=== PATIENT | female | born 1950 | race Caucasian/White ===

== ENCOUNTER → 2017-02-12 | Outpatient (REF) | payer MEDICARE, OTHER ==
[2017-02-12 14:26] LABS: INR 0.94; PROTHROMBIN TIME 12.7 SECONDS (12.4-14.5)
[2017-02-12 14:27] LABS: PARTIAL THROMBOPLASTIN TIME 27.2 SECONDS (26.8-37.9)
== END ==
LOC: M LAB REF 13:31
DX: Z01.818 Encounter for other preprocedural examination (principal); Z79.01 Long term (current) use of anticoagulants
CPT/HCPCS: 85610

== ENCOUNTER 2017-02-23 13:15 | Day surgery (SDC) | payer MEDICARE, OTHER ==
[2017-02-23] MEDS: NS 1,000 ML IV (13:30)
[2017-02-23] MEDS ORDERED: LIDOCAINE 2% INJ 100 MG/5 ML SDV (FOR ANES.) As Ordered (14:02)
[2017-02-23] MEDS ORDERED: PROPOFOL 500 MG/50 ML VIAL As Ordered (14:02)
== END 2017-02-23 15:07 | disposition home or self-care (01) ==
LOC: M OPP 13:15
DX: R19.5 Other fecal abnormalities (principal); D12.2 Benign neoplasm of ascending colon; K64.8 Other hemorrhoids; K29.70 Gastritis, unspecified, without bleeding; I10 Essential (primary) hypertension; E78.5 Hyperlipidemia, unspecified; E03.9 Hypothyroidism, unspecified; K52.9 Noninfective gastroenteritis and colitis, unspecified; K58.9 Irritable bowel syndrome, unspecified; Z86.19 Personal history of other infectious and parasitic diseases; K21.9 Gastro-esophageal reflux disease without esophagitis; R12 Heartburn; Z86.718 Personal history of other venous thrombosis and embolism; Z86.14 Personal history of Methicillin resistant Staphylococcus aureus infection; M19.90 Unspecified osteoarthritis, unspecified site; M51.9 Unspecified thoracic, thoracolumbar and lumbosacral intervertebral disc disorder; M54.30 Sciatica, unspecified side; M79.7 Fibromyalgia; G43.909 Migraine, unspecified, not intractable, without status migrainosus; G50.0 Trigeminal neuralgia; Z78.0 Asymptomatic menopausal state; J45.909 Unspecified asthma, uncomplicated; G47.30 Sleep apnea, unspecified; R06.83 Snoring; Z88.8 Allergy status to other drugs, medicaments and biological substances; Z88.5 Allergy status to narcotic agent; Z88.0 Allergy status to penicillin; Z91.048 Other nonmedicinal substance allergy status; Z79.899 Other long term (current) drug therapy; Z80.3 Family history of malignant neoplasm of breast
CPT/HCPCS: 45385

== ENCOUNTER → 2017-03-24 | Outpatient (REF) | payer MEDICARE, OTHER ==
[2017-03-27 00:06] LABS: PHENOBARBITAL (PRIMIDONE) 2 ug/mL (15-40); PRIMIDONE, SERUM 5.9 ug/mL (5.0-12.0)
== END ==
LOC: M LAB REF 17:34
DX: J45.40 Moderate persistent asthma, uncomplicated (principal)
CPT/HCPCS: 80188

== ENCOUNTER → 2017-08-14 | Outpatient (REF) | payer MEDICARE, OTHER ==
[2017-08-14 19:36] LABS: RHEUMATOID FACTOR QUANT < 10.0 IU/ML (<15.0)
[2017-08-17 15:40] LABS: ANTINUCLEAR ANTIBODIES DIRECT Negative (Negative)
[2017-08-18 08:52] LABS: DRVV SCREEN 36.3 SEC
[2017-08-18 08:59] LABS: PTT LUPUS TYPE ANTICOAG SCREEN 0.8 (0-1.2)
== END ==
LOC: M LAB REF 16:59
DX: M25.50 Pain in unspecified joint (principal); M54.5 Low back pain
CPT/HCPCS: 85730

== ENCOUNTER → 2018-06-01 | Outpatient (REF) | payer MEDICARE, OTHER ==
[~2018-06-01] MED LIST: *BLDWK7; ACAI500C PO; ACET65TA OR; ADVA1AER2 INH; ADVAIR200 INHALATION; ADVAIR500 INHALATION; ALBU/IPRAT INHALATION; ALLE60TA69 PO; AMBI12.52 PO; AMBI5TAB PO; AMBIEN5 PO; ASMA1AER3 IN; ASTELIN NASAL; ATRO1SOL13; ATROVENT0.02%; AVEL1TAB2 OR; BACIDCA PO; BACL10TA2 OR; BIOT50004 PO; CADUET; CALC12504 PO; CALC600T7 PO; CALCTAB7 PO; CARA1TAB2 PO; CARB1TAB20; CATATTS2 TOPICALLY; CELEBRE100 PO; CIPR500T3 PO; CLARINEX PO; CLEO300C2 PO; CORTISSUSP OTIC; D 50CAP PO; DICY20TA11 PO; DIFLUC150 PO; DIOV160T5; DIOV80TA PO; DIOVANH160 PO; DUONSOL INH; DUONSOL INHALATION; ENTO3CAP5 PO; EPIP0.3I2 INJ; FLAG500T PO; FLONASESPR NASAL; FLOXINOTIC; FLUC10TA OR; GABA-845 PO; GINK120T PO; GLUC1500 PO; HCTZ25 PO; IMITREX100 PO; IPRA0.00 NEB; L THYROXINE PO; LEVA12INH INH; LEVAINH INH; LEVO112T2 PO; LEVO125T4 PO; LIDO1DIS2 TD; LIDODERM TOPICAL; LOPE2CAP PO; LOPR50TA OR; LYRI75CA PO; Lioresal PO; MAGN250T PO; MAGN500T2 PO; MAXA5TAB10 PO; MECL-68 PO; METO-743; METO1TAB7 PO; METO1TAB88 PO; MICR10CA PO; MOBIC15 PO; MOBIC7.5 PO; MUCINEX DM PO; MULTTAB4 PO; MYRB25TA PO; MYSO50TA5 PO; NAPR250T4 PO; NEUR300C; NEUR800T OR; NEXI1CAP3; NEXI1CAP3 OR; NEXIUM40 PO; NORVASC10 PO; NYST50SS PO; OCUFLOX TOPICAL; OMNASPR; ONDA-1 PO; OXYB5TAB80 PO; PANT40TA3 PO; PATANOL OPHTH; POTA99TA PO; PRAV20TA2 PO; PRED10TA2 OR; PRED10TA2 PO; PRED1TABL OU; PREDNISO20 PO; PREDOPD OS; PREG100CA OR; PREG100CA PO; PRILOSEC20 PO; PRILOSEC40 PO; REST0.05 OU; RESTASIS OS; RHIN3SUS; ROBISYP3 PO; SALI0.6528; SING10TA31 OR; SINGULAI10 PO; SKEL800T97 PO; SUCR1SS PO; SUCRPOW PO; SUDAFED30 PO; SUPECAP14 PO; SYNT137T; SYNTHRO PO; SYNTHRO125 PO; SYST0.3G OU; SYST1SOL OD; SYST1SOL OU; SYSTANE OS; SYSTANE OU; TESS100C OR; TOVI4TAB PO; TRAM50TA2 PO; TYLE325T5 PO; TYLE650T30 PO; ULTRTA PO; VENTAER INH; VERA27.5; VIOXX25 PO; VITA-121 PO; VITA1TAB23 PO; VITA400C2 PO; VITA500C14 PO; VOLT1GEL2 TD; VOLTARAN TOP; WELCHOL PO; XANA0.25 PO; XOLA150S SC; XOPENEX63 NEB; ZITHROM500 PO; ZITHROZPAK PO; ZOCOR40 PO; ZOLOFT100 PO; [UNRECOGNIZED DRUG - CODE] PO; [UNRECOGNIZED DRUG - CODE] PO; [UNRECOGNIZED DRUG - OTHER] PO; [UNRECOGNIZED DRUG - OTHER] TOP; cpap
[2018-06-01 19:52] LABS: INFLUENZA A AMPLIFICATION NEGATIVE (NEGATIVE); INFLUENZA B AMPLIFICATION NEGATIVE (NEGATIVE)
== END ==
LOC: M LAB REF 17:30
PROVIDERS: ATTEND Nurse Practitioner Adult Health
DX: R50.9 Fever, unspecified (principal); R05 Cough; J45.40 Moderate persistent asthma, uncomplicated

== ENCOUNTER → 2018-06-01 | Outpatient (REF) | payer MEDICARE, OTHER | LOC: M LAB REF 19:01 | PROVIDERS: ATTEND Internal Medicine Pulmonary Disease | DX: R05 Cough (principal); J45.40 Moderate persistent asthma, uncomplicated ==

== ENCOUNTER → 2018-08-02 | Outpatient (REF) | payer MEDICARE, OTHER | LOC: M LAB REF 13:24 | PROVIDERS: ATTEND Internal Medicine Pulmonary Disease | DX: R05 Cough (principal) ==

== ENCOUNTER 2018-09-16 06:12 | Day surgery (SDC) | payer MEDICARE, OTHER ==
[~2018-09-16] VITALS: Ht 157.5 cm; Wt 83.5 kg
[~2018-09-16 06:12] MED LIST changes: +AMLO10TA5 PO; +BACL10TA8 PO; -CALC12504 PO; +CALC500T61 PO; +CBD OIL PO; +MYRB50TA PO
[2018-09-16] MEDS ORDERED: mitoMYcin 0.2 MG/VIAL KIT FOR OPHTHALMIC USE (J7315 PER 0.2MG) As Ordered ONE (06:38)
[2018-09-16] MEDS ORDERED: POVIDONE-IODINE 5% OPHTH PREP SOL 30ML As Ordered ONE (06:38)
[2018-09-16] MEDS ORDERED: PROPARACAINE 0.5% OPHTH SOL 15ML OS ONE (07:00)
[2018-09-16] MEDS ORDERED: MIDAZOLAM INJ 2 MG/2 ML VIAL (J2250) As Ordered ONE (07:35)
[2018-09-16] MEDS ORDERED: fentaNYL 100 MCG/2 ML INJECTION (J3010) As Ordered ONE (07:35)
[2018-09-16] MEDS ORDERED: ONDANSETRON 4MG/2ML VIAL (J2405) As Ordered ONE (07:35)
[2018-09-16 08:10] VITALS: BP 174/78
--- NOTE | 2018-09-21 08:05 | RO ---
DATE OF PROCEDURE: 09/16/2018 PREPROCEDURE DIAGNOSIS: 1. Recurrent corneal erosion, status post corneal trauma of the left eye. POSTPROCEDURE DIAGNOSIS: 1. Recurrent corneal erosion, status post corneal trauma of the left eye. PROCEDURE: 1. Superficial keratectomy with use of jamilah jens and peripheral corneal scoring of the left eye SURGEON: Yefri Dietz MD SURGICAL SERVICES ASST: ANESTHESIA: MAC. The patient was identified. The surgical eye was marked and the patient was transferred to the operating room. The eye was prepped and draped in a sterile fashion. Tegaderm was used to isolate the upper and lower eyelids and a speculum was placed. Careful inspection of the corneal surface was performed prior to the procedure. At that time, a [place] blade was used to gently remove the corneal epithelium 360 degrees, leaving approximately 1 to 2 mm at the corneal limbus of untouched epithelium. Using a 5 mm jamilah jens, careful application of the jamilah jens was used to roughen peripheral and paracentral corneal surface. Using a bent 30-gauge needle, gentle hash dixon were placed 360 degrees in the exposed corneal surface 360 degrees. A bandage contact lens was placed. The patient tolerated the procedure well and was discharged to the postanesthesia care unit (PACU) in a stable condition. JOE
== END 2018-09-16 08:28 | disposition home or self-care (01) ==
LOC: M SDC 06:12
PROVIDERS: ATTEND Ophthalmology
DX: H18.832 Recurrent erosion of cornea, left eye (principal); I10 Essential (primary) hypertension; E78.5 Hyperlipidemia, unspecified; E03.9 Hypothyroidism, unspecified; M79.7 Fibromyalgia; J45.909 Unspecified asthma, uncomplicated; G47.30 Sleep apnea, unspecified; Z88.0 Allergy status to penicillin; Z88.8 Allergy status to other drugs, medicaments and biological substances; Z79.899 Other long term (current) drug therapy
CPT/HCPCS: 65435; J2250; J2405; J3010

== ENCOUNTER → 2019-01-20 | Outpatient (CLI) | payer MEDICARE, OTHER ==
[~2019-01-20] MED LIST changes: +PROHANCE 279.3MG/ML 5ML VIAL (A9576) As Ordered ONE
--- NOTE | 2019-01-20 13:42 | REP ---
MRI LEFT UPPER ARM WITH AND WITHOUT CONTRAST: HISTORY: Palpable lump. The area is marked on the skin. Multiple sequences obtained in the axial, coronal, and sagittal planes prior to and following the intravenous administration of 8 mL ProHance. At the site of the reported palpable lump there is subcutaneous lipomatous tissue without a discrete mass. No cystic lesions are seen. No fluid collection is seen. No abnormal enhancement is seen. The underlying humerus demonstrates normal bone marrow signal with no abnormal enhancement. IMPRESSION: Negative MRI left upper arm. No evidence of underlying mass. Electronically Signed by William Aguilar MD 01/24/2019 10:16 A
== END ==
LOC: M RAD 10:51
PROVIDERS: ATTEND Orthopaedic Surgery
DX: R22.32 Localized swelling, mass and lump, left upper limb (principal)
CPT/HCPCS: 73220; A9576

== ENCOUNTER → 2019-09-06 | Outpatient (CLI) | payer MEDICARE, OTHER ==
[~2019-09-06] MED LIST changes: +ADV500INH INH; -AMLO10TA5 PO; +AMLO1TAB25 PO; +CALC-212 PO; -CALC600T7 PO; +FAMO20TA PO; +LOSA25TA14 PO; +LYRI150C PO; -MECL-68 PO; +MECL1TAB31 PO; +MULTCAP PO; +PANT40TA29 PO; -PANT40TA3 PO; -PROHANCE 279.3MG/ML 5ML VIAL (A9576) As Ordered ONE; +SING10TA32 PO; -VITA1TAB23 PO; +VITA250T20 PO
--- NOTE | 2019-10-28 14:08 | REP ---
MAXILLOFACIAL CT STUDY. HISTORY: Chronic maxillary sinusitis. Delay in reporting results from hospital computer system malfunction from malware/ ransomware. COMPARISON: None. FINDINGS: Maxillary, frontal, sphenoidal and ethmoidal air cells are clear. There is no evidence of paranasal sinus disease. The mastoid aeration is normal and symmetric as well. No intraorbital or intracranial abnormality is seen. The orbital margins are intact. The bony nasal septum is in the midline. The nasal turbinate soft tissues are symmetric. The osteomeatal complexes are patent, as are the nasal ethmoid recesses. IMPRESSION: Negative paranasal sinus CT study. MTDD
== END ==
LOC: M PLAIMG 05:45
PROVIDERS: ATTEND Internal Medicine Nephrology
DX: N18.3 Chronic kidney disease, stage 3 (moderate) (principal); I12.9 Hypertensive chronic kidney disease with stage 1 through stage 4 chronic kidney disease, or unspecified chronic kidney disease; N32.81 Overactive bladder

== ENCOUNTER → 2019-09-06 | Outpatient (CLI) | payer MEDICARE, OTHER ==
--- NOTE | 2019-10-28 14:06 | REP ---
MAXILLOFACIAL CT STUDY. HISTORY: Chronic maxillary sinusitis. This report was delayed due to a malware attack on this facility. COMPARISON: None. FINDINGS: Maxillary, frontal, sphenoidal and ethmoidal air cells are clear. There is no evidence of paranasal sinus disease. The mastoid aeration is normal and symmetric as well. No intraorbital or intracranial abnormality is seen. The orbital margins are intact. The bony nasal septum is in the midline. The nasal turbinate soft tissues are symmetric. The osteomeatal complexes are patent, as are the nasal ethmoid recesses. IMPRESSION: Negative paranasal sinus CT study. MTDD
== END ==
LOC: M RAD 08:53
PROVIDERS: ATTEND Physician Assistant Medical
DX: J32.0 Chronic maxillary sinusitis (principal)

== ENCOUNTER → 2019-11-17 | Outpatient (CLI) | payer MEDICARE, OTHER | LOC: M LABSMTC 11:52 | PROVIDERS: ATTEND Anesthesiology | DX: Z01.812 Encounter for preprocedural laboratory examination (principal); Z20.828 Contact with and (suspected) exposure to other viral communicable diseases | CPT/HCPCS: C9803; U0003 ==

== ENCOUNTER 2019-11-22 11:13 | Day surgery (SDC) | payer MEDICARE, OTHER ==
[~2019-11-22] VITALS: Ht 158.8 cm; Wt 76.2 kg
[~2019-11-22 11:13] MED LIST changes: +LIDOCAINE 2% 100MG/5ML SDV (FOR ANES.) As Ordered ONE; +NS 1,000 ML IV ONE; +fentaNYL 100 MCG/2 ML INJECTION (J3010) As Ordered ONE; +propofoL 200 MG/20 ML VIAL As Ordered ONE
--- NOTE | 2019-11-22 13:47 | ROOR ---
Patient Name: Evita Colon Procedure Date: 11/22/2019 1:17 PM Date of : 1950 Age: 69 Room: [facility] Gender: Female Note Status: Finalized Procedure: Upper GI endoscopy Indications: Heartburn, Failure to respond to medical treatment Providers: Moody ORO MD Referring MD: Angelita Bowman NP Requesting Provider: Medicines: Monitored Anesthesia Care Complications: No immediate complications. Procedure: Pre-Anesthesia Assessment: - The heart rate, respiratory rate, oxygen saturations, blood pressure, adequacy of pulmonary ventilation, and response to care were monitored throughout the procedure. The Endoscope was introduced through the mouth, and advanced to the second part of duodenum. The upper GI endoscopy was accomplished without difficulty. The patient tolerated the procedure well. Findings: The examined esophagus was normal. The entire examined stomach was normal. A medium diverticulum was found in the first portion of the duodenum. The examined duodenum was normal. Impression: - Normal esophagus. - Normal stomach. - Normal examined duodenum. - Incidental: 1 cm duodenal diverticulum in the 1st/2nd portion. - No specimens collected. Recommendation: - Unable to tolerate PPI therapy. failure on H2B,Sucralfate, tums, maalox and other OTC meds. I would recommend consideration for antireflux surgery. - Referral will be made for consultation re: antireflux surgery. Moody Oro MD Moody ORO MD 11/22/2019 1:46:47 PM Electronically signed by Moody ORO MD Number of Addenda: 0 Note Initiated On: 11/22/2019 1:17 PM Estimated Blood Loss: Estimated blood loss: none.
[2019-11-22] MEDS ORDERED: propofoL 200 MG/20 ML VIAL As Ordered ONE (13:59)
--- NOTE | 2019-11-22 14:03 | ROOR ---
Patient Name: Evita Colon Procedure Date: 11/22/2019 1:19 PM Date of : 1950 Age: 69 Room: [facility] Gender: Female Note Status: Finalized Procedure: Colonoscopy Indications: High risk colon cancer surveillance: Personal history of colonic polyps Providers: Moody ORO MD Referring MD: Angelita Bowman NP Requesting Provider: Medicines: Monitored Anesthesia Care Complications: No immediate complications. Procedure: Pre-Anesthesia Assessment: - The heart rate, respiratory rate, oxygen saturations, blood pressure, adequacy of pulmonary ventilation, and response to care were monitored throughout the procedure. The Colonoscope was introduced through the anus and advanced to the terminal ileum, with identification of the appendiceal orifice and IC valve. The colonoscopy was performed without difficulty. The patient tolerated the procedure well. The quality of the bowel preparation was good. Findings: The perianal and digital rectal examinations were normal. Mild sigmoid diverticulosis and small internal hemorrhoids. The entire examined colon othertwise appeared normal on direct and retroflexion views. Impression: - Mild sigmoid diverticulosis and small internal hemorrhoids. - The colon is otherwise normal on direct and retroflexion views. - No specimens collected. Recommendation: - Repeat colonoscopy in 5 years for surveillance. Moody Oro MD Moody ORO MD 11/22/2019 2:03:32 PM Electronically signed by Moody ORO MD Number of Addenda: 0 Note Initiated On: 11/22/2019 1:19 PM Estimated Blood Loss: Estimated blood loss: none.
[2019-11-22 14:30] VITALS: BP 162/84
== END 2019-11-22 14:36 | disposition home or self-care (01) ==
LOC: M OPP 11:13
PROVIDERS: ATTEND Internal Medicine Gastroenterology
DX: Z12.11 Encounter for screening for malignant neoplasm of colon (principal); Z86.010 Personal history of colon polyps; R12 Heartburn; K21.9 Gastro-esophageal reflux disease without esophagitis; K59.00 Constipation, unspecified; K57.30 Diverticulosis of large intestine without perforation or abscess without bleeding; K64.8 Other hemorrhoids; K57.10 Diverticulosis of small intestine without perforation or abscess without bleeding; I10 Essential (primary) hypertension; E03.9 Hypothyroidism, unspecified; K58.9 Irritable bowel syndrome, unspecified; M79.7 Fibromyalgia; G43.909 Migraine, unspecified, not intractable, without status migrainosus; J45.909 Unspecified asthma, uncomplicated; Z86.718 Personal history of other venous thrombosis and embolism; Z86.14 Personal history of Methicillin resistant Staphylococcus aureus infection; Z88.0 Allergy status to penicillin; Z88.5 Allergy status to narcotic agent; Z88.6 Allergy status to analgesic agent; Z88.8 Allergy status to other drugs, medicaments and biological substances; Z91.09 Other allergy status, other than to drugs and biological substances; Z79.891 Long term (current) use of opiate analgesic; Z79.899 Other long term (current) drug therapy; Z83.6 Family history of other diseases of the respiratory system; Z83.3 Family history of diabetes mellitus; Z80.3 Family history of malignant neoplasm of breast
CPT/HCPCS: 43235; G0105; J3010

== ENCOUNTER → 2020-02-09 | Outpatient (REF) | payer MEDICARE, OTHER ==
[~2020-02-09] MED LIST changes: -LIDOCAINE 2% 100MG/5ML SDV (FOR ANES.) As Ordered ONE; -NS 1,000 ML IV ONE; -fentaNYL 100 MCG/2 ML INJECTION (J3010) As Ordered ONE; -propofoL 200 MG/20 ML VIAL As Ordered ONE
[2020-02-09 16:35] LABS: APPEARANCE, URINE CLEAR (CLEAR); BACTERIA, URINE AUTO NEGATIVE (NEGATIVE); BILIRUBIN, URINE AUTO NEGATIVE (NEGATIVE); BLOOD, URINE BLOOD NEGATIVE (NEGATIVE); COLOR, URINE YELLOW (YELLOW); GLUCOSE, URINE (UA) AUTO NEGATIVE (NEGATIVE); KETONE, URINE AUTO NEGATIVE (NEGATIVE); LEUKOCYTE ESTERASE, URINE AUTO 1+ (NEGATIVE); NITRITE, URINE AUTO NEGATIVE (NEGATIVE); PROTEIN, URINE AUTO NEGATIVE (NEGATIVE); RBC, URINE AUTO 0 /HPF (0-3); SPECIFIC GRAVITY URINE AUTO 1.006 (1.002-1.035); SQUAMOUS EPITHELIAL CELL UR AU 0 /HPF (0-6); UROBILINOGEN, URINE AUTO 0.2 mg/dL (0.0-2.0); WBC, URINE AUTO 3 /HPF (0-3)
== END ==
LOC: M LAB REF 16:20
PROVIDERS: ATTEND Physician Assistant
DX: N39.0 Urinary tract infection, site not specified (principal)

== ENCOUNTER → 2020-02-16 | Outpatient (REF) | payer MEDICARE, OTHER | LOC: M LAB REF 12:39 | PROVIDERS: ATTEND Nurse Practitioner Adult Health | DX: M54.5 Low back pain (principal); R31.29 Other microscopic hematuria ==

== ENCOUNTER → 2020-02-29 | Outpatient (CLI) | payer MEDICARE, OTHER ==
--- NOTE | 2020-02-29 14:36 | REP ---
INDICATION: FLANK PAIN. COMPARISON: Comparison sonography September 06, 2019.. TECHNIQUE: Transabdominal urinary tract sonography. FINDINGS: Scanning at the level of the urinary bladder shows no abnormality. Renal cortical echogenicity pattern is normal bilaterally and contours are smooth. There is no evidence of hydronephrosis, cyst, mass, or calculus in either kidney. The right kidney measures 11.1 x 5.9 x 3.5 cm. Left renal dimensions are 11.4 x 5.0 x 5.8 cm. IMPRESSION: Normal urinary tract sonography. <Electronically signed by Antonio Carolina > 02/29/20 [id number]
== END ==
LOC: M RAD 12:22
PROVIDERS: ATTEND Nurse Practitioner Adult Health
DX: R10.30 Lower abdominal pain, unspecified (principal)

== ENCOUNTER → 2020-08-14 | Outpatient (CLI) | payer MEDICARE, OTHER ==
[~2020-08-14] MED LIST changes: +GABA-283 PO; -GABA-845 PO; +NAPR-849 PO; -NAPR250T4 PO
[2020-08-14 12:45] LABS: PLATELET COUNT, AUTOMATED 258 10^3/uL (150-450)
[2020-08-14 12:51] LABS: COLLAGEN EPINEPHRINE 90 SECONDS (74-162)
[2020-08-14 12:53] LABS: INR 0.87; PARTIAL THROMBOPLASTIN TIME 22.1 SECONDS (24.2-38.5)
== END ==
LOC: M LAB 11:27
PROVIDERS: ATTEND Physical Medicine & Rehabilitation
DX: Z01.818 Encounter for other preprocedural examination (principal); Z79.01 Long term (current) use of anticoagulants

== ENCOUNTER → 2020-10-26 | Outpatient (REF) | payer MEDICARE, OTHER ==
[~2020-10-26] MED LIST changes: +AJOV225I SC; +BACL10TA2 PO; +ELIQ5TAB4 PO; +FURO20TA2 PO; +HYDR25TA PO; +IPRA0.00 INH; +LOSA100T45 PO; +LOSA25TA13 PO; -LOSA25TA14 PO; +MAXA10TA15 PO; +PROAAER10 INH; +QVAR80AE8 INH; +VERA360C PO; +VESI10TA2 PO; +VITMTA PO
== END ==
LOC: M LAB REF 16:01
PROVIDERS: ATTEND Nurse Practitioner Adult Health
DX: R10.9 Unspecified abdominal pain (principal)

== ENCOUNTER → 2020-10-31 | Outpatient (CLI) | payer MEDICARE, OTHER ==
[~2020-10-31] MED LIST changes: -AJOV225I SC; -BACL10TA2 PO; -ELIQ5TAB4 PO; -FURO20TA2 PO; +GASTROGRAFIN SOLUTION 30ML (Q9963) ONE; -HYDR25TA PO; -IPRA0.00 INH; +ISOVUE-370 76% 100ML VIAL ONE; -LOSA100T45 PO; -LOSA25TA13 PO; +LOSA25TA14 PO; -MAXA10TA15 PO; -PROAAER10 INH; -QVAR80AE8 INH; -VERA360C PO; -VESI10TA2 PO; -VITMTA PO
--- NOTE | 2020-10-31 15:08 | REP ---
INDICATION: RT SIDE ABD PAIN. COMPARISON: Abdominal CT 09/11/2014. chest CT 08/05/2018. TECHNIQUE: CT abdomen and pelvis performed without IV contrast. CT abdomen and pelvis performed with IV contrast as well, following intravenous administration of 100 cc of Isovue 370. Oral contrast was also administered. Sagittal, coronal and 3D MIP reconstruction images are performed. FINDINGS: Lung bases: Bibasilar fibrotic change. Liver: Normal Gallbladder: Prior cholecystectomy. Spleen: Normal. Adrenals: Normal. Pancreas: Normal. Kidneys: There is a subcentimeter cyst of the mid left kidney. No renal stone or hydronephrosis is visualized. Small and large bowel: Unremarkable. Free fluid: None. Adenopathy: None. Appendix: Not inflamed. Osseous structures: There are degenerative changes of the spine without compression deformity. Pelvis: No mass. IMPRESSION: No significant acute pathology identified. <Electronically signed by William Aguilar > 10/31/20 [id number]
== END ==
LOC: M PLAIMG 12:42
PROVIDERS: ATTEND Nurse Practitioner Adult Health
DX: R10.9 Unspecified abdominal pain (principal)
CPT/HCPCS: 74178; Q9963; Q9967

== ENCOUNTER → 2020-11-14 | Outpatient (REF) | payer MEDICARE, OTHER ==
[~2020-11-14] MED LIST changes: -GASTROGRAFIN SOLUTION 30ML (Q9963) ONE; -ISOVUE-370 76% 100ML VIAL ONE
== END ==
LOC: M LAB REF 13:27
PROVIDERS: ATTEND Nurse Practitioner Family
DX: E83.42 Hypomagnesemia (principal)

== ENCOUNTER → 2020-12-04 | Outpatient (CLI) | payer MEDICARE, OTHER ==
--- NOTE | 2020-12-04 11:58 | REP ---
INDICATION: RENOVASCULAR HTN, CKD 3A; HTN, CKD. COMPARISON: 02/29/2020. TECHNIQUE: Real-time sonographic evaluation of the kidneys is performed. Duplex Doppler evaluation of renal arteries performed. FINDINGS: Renal cortical echogenicity pattern is normal bilaterally and contours are smooth. There is no evidence of hydronephrosis bilaterally. There is a 6 mm cyst in the right lower pole. There is a 7 mm cyst in the mid left kidney.. The right kidney measures 11.4 x 5.8 x 3.8 cm. Left renal dimensions are 11.1 x 5.4 x 5.6 cm. The urinary bladder is unremarkable. Duplex Doppler evaluation of renal arteries is performed. The peak systolic velocity of the abdominal aorta at the level of the renal arteries is 85 centimeter/second. The peak systolic velocity of the main right renal artery is 193 centimeters/second, renal to aortic ratio 2.3. Resistive indices right kidney range between 0.61 and 0.66. Acceleration times range between 0.028 and 0.069. The peak systolic velocity of the main left renal artery is 145 centimeters/second. Renal to aortic ratio 1.70. Resistive indices left kidney 0.59 and 0.64. Acceleration times 0.039 to 0.056. IMPRESSION: No compelling duplex Doppler sonographic evidence of hemodynamically significant stenosis of the renal arteries bilaterally. <Electronically signed by William Aguilar > 12/04/20 [id number]
== END ==
LOC: M RAD 08:43
PROVIDERS: ATTEND Nurse Practitioner Family
DX: I15.0 Renovascular hypertension (principal); N18.31 Chronic kidney disease, stage 3a

== ENCOUNTER → 2020-12-11 | Outpatient (CLI) | payer MEDICARE, OTHER ==
--- NOTE | 2020-12-11 15:45 | REP ---
INDICATION: SEVERE PERSISTENT ASTHMA, UNCOMPLICATED. COMPARISON: 08/02/2018 the latest prior TECHNIQUE: PA and lateral FINDINGS: The cardiomediastinal silhouette is stable. There are basilar fibrotic changes status quo. No acute patchy parenchymal opacities or pleural effusions have developed. There is no change in the osseous structures. IMPRESSION: Stable appearing chronic changes. <Electronically signed by Jayme Garcia > 12/11/20 [id number]
== END ==
LOC: M PLAIMG 11:38
PROVIDERS: ATTEND Internal Medicine Pulmonary Disease
DX: J45.50 Severe persistent asthma, uncomplicated (principal)

== ENCOUNTER → 2020-12-12 | Outpatient (REF) | payer MEDICARE, OTHER | LOC: M LAB REF 17:36 | PROVIDERS: ATTEND Nurse Practitioner Family | DX: I12.9 Hypertensive chronic kidney disease with stage 1 through stage 4 chronic kidney disease, or unspecified chronic kidney disease (principal); N18.31 Chronic kidney disease, stage 3a ==

== ENCOUNTER → 2020-12-18 | Outpatient (REF) | payer MEDICARE, OTHER | LOC: M LAB REF 13:10 | PROVIDERS: ATTEND Internal Medicine Pulmonary Disease | DX: J45.50 Severe persistent asthma, uncomplicated (principal) ==

== ENCOUNTER → 2020-12-18 | Outpatient (CLI) | payer MEDICARE, OTHER ==
--- NOTE | 2020-12-18 16:53 | REPVR ---
PROCEDURE INFORMATION: Exam: MR Thoracic Spine Without Contrast Exam date and time: 12/18/2020 3:41 PM Age: 70 years old Clinical indication: Pain in thoracic spine; Additional info: Pain in t spine TECHNIQUE: Imaging protocol: Multiplanar magnetic resonance images of the thoracic spine without contrast. COMPARISON: CT ABD PELVIS W/O FOL BY WIT 10/31/2020 2:19 PM FINDINGS: Modic type 1 edematous degenerative endplate change at T10-T11 and L1-L2. No evidence of acute thoracic spine fracture. Thoracic vertebral body heights are maintained. Multilevel mild degenerative disc height loss and osteophyte formation. Multilevel minimal posterior disc protrusions without significant canal narrowing. No cord compression. No abnormal cord signal. Thoracic kyphosis is preserved. Paravertebral soft tissues are unremarkable. Partially visualized right-sided mild hydronephrosis IMPRESSION: 1. No acute findings in the thoracic spine. 2. Partially visualized right-sided mild hydronephrosis. Correlate with dedicated renal imaging. 3. Chronic findings, as above. Electronically signed by: Roman Ortiz On 12/18/2020 16:53:01 PM
== END ==
LOC: M PLAIMG 14:17
PROVIDERS: ATTEND Physical Medicine & Rehabilitation
DX: M54.6 Pain in thoracic spine (principal); I12.9 Hypertensive chronic kidney disease with stage 1 through stage 4 chronic kidney disease, or unspecified chronic kidney disease; J45.50 Severe persistent asthma, uncomplicated

== ENCOUNTER → 2020-12-18 | Outpatient (REF) | payer MEDICARE, OTHER | LOC: M LAB REF 13:30 | PROVIDERS: ATTEND Nurse Practitioner Family | DX: I12.9 Hypertensive chronic kidney disease with stage 1 through stage 4 chronic kidney disease, or unspecified chronic kidney disease (principal) ==

== ENCOUNTER → 2021-01-07 | Outpatient (CLI) | payer MEDICARE, OTHER ==
[~2021-01-07] MED LIST changes: +AJOV225I SC; +BACL10TA2 PO; +ELIQ5TAB4 PO; +FURO20TA2 PO; +HYDR25TA PO; +IPRA0.00 INH; +LOSA100T45 PO; +LOSA25TA13 PO; -LOSA25TA14 PO; +MAXA10TA15 PO; +PROAAER10 INH; +QVAR80AE8 INH; +VERA360C PO; +VESI10TA2 PO; +VITMTA PO
== END ==
LOC: M CARPUL 10:23
PROVIDERS: ATTEND Internal Medicine Pulmonary Disease
DX: R06.00 Dyspnea, unspecified (principal)

== ENCOUNTER → 2021-01-15 | Outpatient (REF) | payer MEDICARE, OTHER ==
[~2021-01-15] MED LIST changes: -AJOV225I SC; -BACL10TA2 PO; -ELIQ5TAB4 PO; -FURO20TA2 PO; -HYDR25TA PO; -IPRA0.00 INH; -LOSA100T45 PO; -LOSA25TA13 PO; +LOSA25TA14 PO; -MAXA10TA15 PO; -PROAAER10 INH; -QVAR80AE8 INH; -VERA360C PO; -VESI10TA2 PO; -VITMTA PO
[2021-01-15 13:42] LABS: MAGNESIUM LEVEL 2.1 MG/DL (1.8-2.4)
== END ==
LOC: M LAB REF 12:50
PROVIDERS: ATTEND Nurse Practitioner Family
DX: E83.42 Hypomagnesemia (principal); I50.32 Chronic diastolic (congestive) heart failure

== ENCOUNTER 2021-01-31 13:52 | Inpatient (IN) | payer MEDICARE, OTHER ==
[~2021-01-31] VITALS: Ht 165.1 cm; Wt 81.4 kg
--- NOTE | 2021-01-31 14:53 | REP ---
INDICATION: DYSPNEA/COUGH COMPARISON: None. TECHNIQUE: Portable AP view of the chest FINDINGS: The mediastinum and cardiac silhouette are stable and within normal limits for portable technique. The lung rice are relatively clear although very subtle left basilar atelectasis cannot be excluded. Skeletal structures are intact. IMPRESSION: Possible left basilar atelectasis. <Electronically signed by Romario George > 01/31/21 [id number]
[2021-01-31 15:03] LABS: BASO % 0.6 % (0.0-1.0); EOS % 0.2 % (0.0-3.0); HEMATOCRIT 39.8 % (36.0-47.0); LYMPH # 1.5 10^3/uL (1.5-5.0); LYMPH % 30.3 % (24.0-44.0); MEAN CORPUSCULAR HGB CONC 32.7 g/dl (32.0-36.5); MEAN CORPUSCULAR VOLUME 94.8 fl (80.0-96.0); MONO # 0.8 10^3/uL (0.0-0.8); MONO % 15.8 % (2.0-8.0); NEUTROPHILS # 2.6 10^3/uL (1.5-8.5); NEUTROPHILS % 52.7 % (36.0-66.0); PLATELET COUNT, AUTOMATED 166 10^3/uL (150-450)
[2021-01-31 15:14] LABS: FIBRINOGEN 311 MG/DL (268-480); INR 1.06; PARTIAL THROMBOPLASTIN TIME 27.9 SECONDS (25.9-37.0); PROTHROMBIN TIME 14.2 SECONDS (12.7-14.5)
[2021-01-31 15:43] LABS: ALBUMIN 3.6 GM/DL (3.2-5.2); BILIRUBIN,DIRECT 0.1 MG/DL (0.0-0.2); BILIRUBIN,TOTAL 0.4 MG/DL (0.2-1.0); CALCIUM LEVEL 8.9 MG/DL (8.8-10.2); CREATININE FOR GFR 0.99 MG/DL (0.55-1.30); GLOMERULAR FILTRATION RATE 59.2 (>45); MAGNESIUM LEVEL 2.6 MG/DL (1.8-2.4); POTASSIUM SERUM 3.4 MEQ/L (3.5-5.1); THYROID STIMULATING HORMONE 0.815 uIU/ML (0.358-3.740); THYROXINE (T4) 7.2 UG/DL (4.5-12.0); TOTAL PROTEIN 6.6 GM/DL (6.4-8.2)
[2021-01-31 15:55] LABS: D-DIMER QUANT > 4000 ng/ml (<500)
[2021-01-31] MEDS ORDERED: ISOVUE-370 76% 100ML VIAL As Ordered ONE (16:30)
--- NOTE | 2021-01-31 18:16 | REPVR ---
PROCEDURE INFORMATION: Exam: CTA Chest With Contrast Exam date and time: 01/31/2021 4:24 PM Age: 70 years old Clinical indication: Shortness of breath; Additional info: SOB; R/O pe TECHNIQUE: Imaging protocol: Computed tomographic angiography of the chest with contrast. 3D rendering (Not supervised by radiologist): MIP and/or 3D reconstructed images were created by the technologist. Radiation optimization: All CT scans at this facility use at least one of these dose optimization techniques: automated exposure control; mA and/or kV adjustment per patient size (includes targeted exams where dose is matched to clinical indication); or iterative reconstruction. Contrast material: ISOVUE 370; Contrast volume: 75 ml; Contrast route: INTRAVENOUS (IV); COMPARISON: CR PORTABLE CHEST X-RAY 01/31/2021 2:36 PM FINDINGS: Pulmonary arteries: Normal. No pulmonary emboli. Aorta: There is mild atherosclerosis in the thoracic aorta. There is no aortic dissection or aneurysm. Lungs: Bibasilar atelectasis. Lungs otherwise clear. Small filling defect demonstrated in a right lower lobe segmental artery consistent with a nonocclusive thrombus (401, 83). Small occlusive thrombus in a segmental artery to the posterior segment of the right upper lobe (401, 50). Pleural spaces: Unremarkable. No pneumothorax. No pleural effusion. Heart: Normal RV LV ratio indicating no evidence of right heart strain. Lymph nodes: Unremarkable. No enlarged lymph nodes. Gallbladder and bile ducts: Cholecystectomy. Bones/joints: The spine demonstrates mild degenerative changes. Soft tissues: Unremarkable. IMPRESSION: 1. There is no aortic dissection or aneurysm. 2. Small pulmonary emboli as described above. 3. Normal RV LV ratio indicating no evidence of right heart strain. 4. No acute pulmonary parenchymal abnormalities. A critical call has been initiated in order to speak with the ordering physician/practitioner. This report will be amended once consultation has occurred. Electronically signed by: Jalen Davis On 01/31/2021 18:16:21 PM
[2021-01-31 19:56] LABS: RSV AMPLIFICATION NEGATIVE (NEGATIVE)
[2021-01-31] MEDS ORDERED: ONDANSETRON 4MG/2ML VIAL IV PRN (20:05)
[2021-01-31 20:37] LABS: BASO % 0.6 % (0.0-1.0); EOS % 0.6 % (0.0-3.0); HEMATOCRIT 40.3 % (36.0-47.0); HEMOGLOBIN 13.1 g/dl (12.0-15.5); LYMPH # 1.8 10^3/uL (1.5-5.0); LYMPH % 34.1 % (24.0-44.0); MEAN CORPUSCULAR HEMOGLOBIN 31.1 pg (27.0-33.0); MEAN CORPUSCULAR HGB CONC 32.5 g/dl (32.0-36.5); MEAN CORPUSCULAR VOLUME 95.7 fl (80.0-96.0); MONO # 0.7 10^3/uL (0.0-0.8); MONO % 14.2 % (2.0-8.0); NEUTROPHILS # 2.6 10^3/uL (1.5-8.5); NEUTROPHILS % 50.1 % (36.0-66.0); PLATELET COUNT, AUTOMATED 162 10^3/uL (150-450); RED BLOOD COUNT 4.21 10^6/uL (4.00-5.40); WHITE BLOOD COUNT 5.1 10^3/uL (4.0-10.0)
[2021-01-31 20:47] LABS: INR 1.05; PROTHROMBIN TIME 14.1 SECONDS (12.7-14.5)
[2021-01-31 20:48] LABS: PARTIAL THROMBOPLASTIN TIME 28.4 SECONDS (25.9-37.0)
[2021-01-31 20:51] LABS: D-DIMER QUANT 3245.33 ng/ml (<500)
[2021-01-31 20:58] LABS: ALBUMIN 3.7 GM/DL (3.2-5.2); BILIRUBIN,DIRECT 0.1 MG/DL (0.0-0.2); BILIRUBIN,TOTAL 0.3 MG/DL (0.2-1.0); C REACTIVE PROTEIN QUANTITATIV 1.03 MG/DL (0.00-0.30); CALCIUM LEVEL 8.9 MG/DL (8.8-10.2); CREATININE FOR GFR 0.99 MG/DL (0.55-1.30); GLOMERULAR FILTRATION RATE 59.2 (>45); MAGNESIUM LEVEL 2.5 MG/DL (1.8-2.4); POTASSIUM SERUM 4.2 MEQ/L (3.5-5.1); TOTAL PROTEIN 6.6 GM/DL (6.4-8.2)
[2021-01-31] MEDS ORDERED: ENOXAPARIN 80MG/0.8ML SYRINGE (J1650 PER 10MG) SC SCH (21:00)
[2021-01-31] MEDS ORDERED: REMDESIVIR 200 MG in NS 250 ML IV ONE (21:00)
[2021-01-31] MEDS ORDERED: LOSARTAN 50MG TABLET PO SCH (21:00)
[2021-01-31] MEDS: GABAPENTIN 400MG CAP PO SCH (21:00)
[2021-01-31] MEDS: APIXABAN 5 MG TAB (ELIQUIS) PO SCH (21:00)
[2021-01-31] MEDS ORDERED: MONTELUKAST 10 MG TAB PO SCH (21:00)
[2021-01-31] MEDS: PRIMIDONE 50 MG TAB PO SCH (21:00)
[2021-01-31] MEDS: PREGABALIN 75 MG CAP(LYRICA) PO SCH (21:00)
[2021-01-31 21:45] VITALS: BP 180/92
--- NOTE | 2021-01-31 22:30 | HPEPDOC ---
General Date of Admission Jan 31, 2021 at 18:55 Date of Service: Jan 31, 2021 Chief Complaint The patient is a 70-year-old female admitted with a reason for visit of Covid- 19, Pulmonary Embolism. History of Present Illness CHIEF COMPLAINT: SOB HISTORY OF PRESENT ILLNESS: This is a 70 year old female who presents to [facility] ER for chief complaint of shortness of breath. Patient states that this past Thursday she felt like she had bronchitis due to a wet cough that is productive efforts of light rosado sputum that has changed now to a dark brown. Patient also has felt very tired and had generalized weakness which she has tried taking Robitussin-DM for however did not help with her symptoms. She states that she has been so fatigued that she missed taking all her medications for the past 2 days. She states that she has had some shortness of breath that has increased and states that she experienced chills last night. She denies any chest pain or pleuritic chest pain. Denies any paroxysmal nocturnal dyspnea. She does have some nausea but no vomiting. Her diarrhea did start this morning. Denies any travel history outside of the state or country. Reports being in contact with her daughter and grandson who all have Covid. PAST MEDICAL HISTORY: Asthma Insomnia History of bleeding wounds GERD Hypothyroidism Mild sigmoid diverticulosis Small internal hemorrhoids Chronic right-sided low back pain with right-sided sciatica Sacroiliac pain fibromyalgia- trigeminal neuralgia History of C. difficile MRSA right breast HFpEF (ECHO 2020) IGLESIA on CPAP PAST SURGICAL HISTORY: Cholecystectomy Right bunionectomy Raised right arch Bilateral carpal Right shoulder reconstruction History of ovarian cyst and several dilation and curettage Removal of neuroma on right foot The right thumb joint L TKA Colonoscopy in 2019 Endoscopy in 2019 sacroiliac joint injections knee replacement 2014 Eye surgery L 2019 trigger finger release L 2019. tonsillectomy 1956 gamma knife brain surgery 2008 for trigeminal neuralgia meniscus repair R knee 2016 SOCIAL HISTORY: Former smoker. Quit 30 years ago. Denies any EtOH or illicit drug use. FAMILY HISTORY: Ca hx: kidney disease, lung ca, pancreatic ca Father. Heart disease hypertension stroke. due to stroke Mother. Heart disease hypertension diabetes asthma anemia breast cancer. due to COPD 6 kids ALLERGIES: Many. See below. REVIEW OF SYSTEMS: General: Denies fever. Positive for chills. Denies unintentional weight loss HEENT: Denies changes in vision including blurry vision or double vision, or hea ring loss nasal congestion or sore throat Heart: Denies chest pain or chest pressure or discomfort, or palpitations, or lower extremity edema Pulm: positive for cough, sputum production productive of brown sputum, and increased shortness of breath GI: Denies vomiting but has nausea and diarrhea. Denies abdominal pain or bloody stools Psych: Denies sadness or loss of interest in doing things, no thoughts of self- harm or suicidal ideation PHYSICAL EXAM: VS: SEE BELOW GENERAL: The patient is a well-developed, well-nourished in no apparent distress. AAOx3. saturating above 90% on RA. No accessory muscle use. NEURO: No focal neurological deficits HEENT: Head is normocephalic and atraumatic. Extraocular muscles are intact. Pupils are equal, round, and reactive to light and accommodation. Nares appears normal. Moist mucous membranes. PULM: Clear to auscultation bilaterally. No wheezing, rhonchi or rales appreciated. CARDIO: Normal S1, S2. no significant murmurs, gallops, rubs or clicks. No signs of peripheral edema ABDOMEN: Soft, nontender, and nondistended. Normal bowel sounds. No significant organomegaly appreciated. EXTREMITIES: No cyanosis, clubbing, rash, lesions. IMAGING: Chest radiograph impression: Possible left basilar atelectasis CTA chest impression: 1. There is no aortic dissection or aneurysm. 2. Small pulmonary emboli (Small filling defect demonstrated in a right lower lobe segmental artery consistent with a nonocclusive thrombus. Small occlusive thrombus in a segmental artery to the posterior segment of the right upper lobe). 3. Normal RV LV ratio indicating no evidence of right heart strain. 4. No acute pulmonary parenchymal abnormalities. IMPRESSION AND PLAN: 1. COVID-19. Asymptomatic. Patient is satting above 95% on room air. Will start on dexamethasone 6 mg IV daily. s/p 1 dose of remdisivir. She's not hypoxic. Will hold off on remdisivir. We will start her on therapeutic Lovenox. Oxygen with exertion above 92%. Zofran as needed for nausea. 2. Pulmonary embolism. In the setting of COVID 19 and hypercoagulable state, She was given theraupetic lovenox 80mg weight based. Will switch to eliquis 10mg BID for 7 days first dose tomorrow am. 5mg PO BID for 3-6 months. 3. Heart failure with preserved Ejection fraction. Not in decompensation. Last ECHO 2020 shows Diastolic dysfunction. C/w with home meds 4. CKD stage 3a. UA ordered. trace hypervolemia. will order bnp. 5. Severe persistent asthma. Not in exacerbation. Patient saw pulmonary earlier this month and was prescribed with prednisone taper. Continue home meds 6. Chronic pain. c/w home meds. 7. Hypothyroidism. Continue home meds. 8. GERD. c/w famotidine. 9. Migraine. C/w home med. 10. IGLESIA on CPAP at night. Patient can use on CPAP DVT ppx: Famotidine Code status: Full Home Medications Scheduled Beclomethasone Dipropionate (Qvar Redihaler) 80 Mcg/Act Hfa.aeroba, 2 PUFFS INH BID, (Reported) Fremanezumab-Vfrm (Ajovy) 225 Mg/1.5 Ml Syringe, 225 MG SC QMONTH, (Reported) LAST DOSE AROUND January Furosemide (Furosemide) 20 Mg Tablet, 20 MG PO DAILY, (Reported) Gabapentin (Gabapentin) 400 Mg Cap, 400 MG PO BID, (Reported) Hydralazine HCl (Hydralazine HCl) 25 Mg Tablet, 50 MG PO BID, (Reported) TAKES 25MG EXTRA PER DOSE IF SBP>140 Levothyroxine Sodium (Levothyroxine Sodium) 125 Mcg Tab, 125 MCG PO DAILY, (Reported) Losartan Potassium (Losartan Potassium) 100 Mg Tablet, 100 MG PO QHS, (Reported) Mirabegron (Myrbetriq) 50 Mg Tab.er.24h, 50 MG PO DAILY, (Reported) Montelukast Sodium (Singulair) 10 Mg Tablet, 10 MG PO QHS, (Reported) Multivitamins (Thera M Plus Tablet) 1 Each Tablet, 1 TAB PO BID, (Reported) Omalizumab (Xolair) 150 Mg Zaina, 150 MG SC Q2WK, (Reported) Prednisone (Prednisone) 10 Mg Tablet, 10 MG PO TAPER, (Reported) 40MG FOR 5 DAYS, 30MG FOR 5 DAYS, 20MG FOR 5 DAYS, 10MG FOR 5 DAYS, 5MG FOR 5 DAYS: PATIENT STGATES SHE IS STILL TAKING 20MG Pregabalin (Lyrica) 150 Mg Capsule, 150 MG PO TID, (Reported) Primidone (Mysoline) 50 Mg Tab, 100 MG PO BID, (Reported) Salmeterol/Fluticasone (Advair 500-50 Diskus) 1 Each Blst.w.dev, 1 PUFF INH BID, (Reported) Solifenacin Succinate (Vesicare) 10 Mg Tablet, 10 MG PO QPM, (Reported) TAKES AROUND 1600 Verapamil HCl (Verapamil HCl) 360 Mg Cap24h.pel, 360 MG PO DAILY, (Reported) Scheduled PRN Albuterol Sulfate (Proair Hfa) 8.5 Gm Hfa.aer.ad, 2 PUFF INH Q4H PRN for SHORTNESS OF BREATH, (Reported) Baclofen (Baclofen) 10 Mg Tablet, 10 MG PO TID PRN for MUSCLE SPASMS, (Reported) Ipratropium/Albuterol Sulfate (Iprat-Albut 0.5-3(2.5) mg/3 ml) 3 Ml Ampul.neb, 3 ML INH Q4H PRN for SHORTNESS OF BREATH, (Reported) Rizatriptan Benzoate (Maxalt Raker Buffing Wheel) 10 Mg Tab.rapdis, 10 MG PO BID PRN for MIGRAINE, (Reported) Zolpidem Tartrate (Ambien) 5 Mg Tab, 5 MG PO QHS PRN for INSOMNIA, (Reported) Allergies Coded Allergies: Penicillins (Verified Allergy, Intermediate, HIVES, 09/15/18) TAPE (Verified Allergy, Intermediate, open area, 11/15/19) care home application of adhesive aspirin (Verified Allergy, Intermediate, HIVES, 09/15/18) tiagabine (Verified Allergy, Intermediate, ALTERED LEVEL OF CONSCIOUSNESS, NAUSEA, FATIGUE, 09/15/18) acetaminophen (Verified Allergy, Unknown, ITCHING, RASH, HIVES, 09/15/18) codeine (Verified Allergy, Unknown, SENSITIVE, 09/15/18) hydrocodone (Verified Allergy, Unknown, ITCHING, RASH, HIVES, 09/15/18) carbamazepine (Verified Adverse Reaction, Severe, LIVER DAMAGE, MALAISE, 09/15/18) milnacipran (Verified Adverse Reaction, Intermediate, SKIN CRAWLING, NAUESA, DIZZINESS, 09/15/18) duloxetine (Verified Adverse Reaction, Mild, LETHARGIC, 09/15/18) nortriptyline (Verified Adverse Reaction, Mild, LETHARGIC, ANXIETY, NAUSEA, 09/15/18) oxcarbazepine (Verified Adverse Reaction, Mild, FATIGUE, VOMITING, 09/15/18) venlafaxine (Verified Adverse Reaction, Mild, MALAISE, DIZZINESS, NAUSEA, 09/15/18) GME ATTESTATION GME ATTESTATION My faculty preceptor for this patient encounter was physically present during the encounter and was fully available. All aspects of the patient interview, examination, medical decision making process, and medical care plan development were reviewed and approved by the faculty preceptor. The faculty preceptor is aware and concurs with the plan as stated in the body of this note and will attest to such by his/her cosignature. ATTENDING NOTE Patient was seen in the emergency department an independent examination was performed. She was referred to the emergency department by her primary care physician. Patient states that she was diagnosed with COVID-19 yesterday along with multiple other family members. She has been having cough for last 3 days now. She is producing roxane sputum. Before the onset of cough 3 days back, for 3 days starting Thursday last, that is 6 days back, she started having sneezing. She consistently sneezed for 3 days. She has had no sniffles or symptoms of upper respiratory infection or cold. She did not have fever. However she had chills yesterday. She has past history of back pain and states that her back pain started acting up since yesterday. She developed diarrhea today with 3-4 loose bowel movements today without abdominal pain or nausea or vomiting or blood in the stool. Past medical and surgical history: Trigeminal neuralgia, chronic back pain, asthma Social history: She does not abuse tobacco. Family history: No history of pulmonary embolism or DVT in the family. Review of systems: She does not have hemoptysis, chest pain, shortness of breath, melena, abdominal distention, constipation, burning in the urine, frequency of micturition, blood in the urine, blurry vision, focal weakness of extremities, sensory symptoms on the face or extremities, joint pains, joint swellings, lymph node enlargement, skin rash, tongue ulcers, sore throat or symptoms of cold. Vitals: Reviewed Examination: General: Averagely nourished. Decubitus: Supine. Head, neck and ENT: No cervical lymphadenopathy. Eyes: No pallor. No icterus. Skin: No generalized skin rash. Cardiovascular: Regular rhythm. Tachycardia present. Loud S1. No murmur. Respiratory: Air entry equal on both sides. No crackles, rhonchi or wheeze. No pleural friction rub. Abdominal: No abdominal distention. Tenderness in quadrant. Bowel sounds not exaggerated. Genitourinary: No renal angle tenderness. No suprapubic tenderness. Neurologic: Conscious, alert and oriented with respect to time place and person. Joints: No tenderness or swelling of joints. Extremities: No extremity swelling. Psychiatric: Normal mood and mood-congruent affect. Labs: Reviewed Imaging reports: Reviewed Assessment and plan: Pulmonary embolism, segmental Related to COVID-19 diagnosis. Started on enoxaparin earlier; to be switched to oral apixaban. Initial apixaban dose of 10 mg twice daily for a week to be followed by 5 mg twice daily. COVID-19 without hypoxia in nonimmunized host Started on remdesivir earlier; remdesivir is thought to be not required at this time. Follow-up with primary care physician recommended for SARS FEV-4-wavbfhti immunoglobulin infusion ("monoclonal antibodies"). Verónica Ware DO Jan 31, 2021 20:04 Pierce Peoples Feb 01, 2021 00:53
[2021-01-31] MEDS ORDERED: SODIUM CHLORIDE 0.9% INJ 10 ML SYR IV ONE (23:00)
[2021-01-31] MEDS ORDERED: PRED10TA2 PO (23:44)
[2021-01-31] MEDS ORDERED: QVAR80AE8 INH (23:44)
[2021-01-31] MEDS ORDERED: VERA360C PO (23:44)
[2021-01-31] MEDS ORDERED: BACL10TA2 PO (23:44)
[2021-01-31] MEDS ORDERED: MAXA10TA15 PO (23:44)
[2021-01-31] MEDS ORDERED: VITMTA PO (23:44)
[2021-01-31] MEDS ORDERED: IPRA0.00 INH (23:44)
[2021-01-31] MEDS ORDERED: LOSA100T50 PO (23:44)
[2021-01-31] MEDS ORDERED: HYDR25TA PO (23:44)
[2021-01-31] MEDS ORDERED: VESI10TA2 PO (23:44)
[2021-01-31] MEDS ORDERED: PROAAER10 INH (23:44)
[2021-01-31] MEDS ORDERED: FURO20TA2 PO (23:44)
[2021-01-31] MEDS ORDERED: AJOV225I SC (23:44)
[2021-01-31] MEDS ORDERED: HOME MED LIST COMPLETE! XX SCH (23:45)
[2021-02-01] MEDS ORDERED: UNRESOLVED CLARIFICATION ENTRY XX SCH (00:01)
[2021-02-01] MEDS ORDERED: RIZATRIPTAN MLT 10 MG TAB PO PRN (00:05)
[2021-02-01] MEDS ORDERED: BACLOFEN 10 MG TAB PO PRN (00:05)
[2021-02-01] MEDS ORDERED: IPRATROPIUM 0.5MG/ALBUTEROL 2.5MG INH SOL UD 3ML (DUONEB) INH PRN (00:05)
[2021-02-01] MEDS ORDERED: zolPIDEM TARTRATE 5 MG TAB PO PRN (00:05)
[2021-02-01] MEDS ORDERED: ALBUTEROL 90 MCG/ACT 8GM HFA INHALER INH PRN ×2 (00:05→11:45)
[2021-02-01] MEDS ORDERED: **hydrALAZINE** 50 MG TAB PO ONE (00:25)
[2021-02-01] MEDS: dexameTHASONE 4 MG/ML 1ML VIAL (J1100 PER 1MG) IV SCH ×2 (01:08→09:51)
[2021-02-01 02:00] VITALS: BP 155/78
[2021-02-01] MEDS ORDERED: LEVOTHYROXINE 125MCG TABLET (0.125MG) PO SCH (06:00)
[2021-02-01 06:45] VITALS: BP 148/82
[2021-02-01 08:00] VITALS: BP 137/72
[2021-02-01] MEDS ORDERED: ADVAIR HFA 230/21MCG INHALER INH SCH (08:00)
[2021-02-01 08:24] LABS: ALBUMIN 3.5 GM/DL (3.2-5.2); ALT/SGPT 41 U/L (12-78); BILIRUBIN,DIRECT < 0.1 MG/DL (0.0-0.2); BILIRUBIN,TOTAL 0.2 MG/DL (0.2-1.0); BLOOD UREA NITROGEN 15 MG/DL (7-18); CALCIUM LEVEL 8.7 MG/DL (8.8-10.2); CARBON DIOXIDE LEVEL 22 MEQ/L (21-32); CHLORIDE LEVEL 111 MEQ/L (98-107); CREATININE FOR GFR 0.77 MG/DL (0.55-1.30); GLOMERULAR FILTRATION RATE > 60.0 (>45); GLUCOSE, FASTING 109 MG/DL (70-100); MAGNESIUM LEVEL 2.3 MG/DL (1.8-2.4); POTASSIUM SERUM 3.9 MEQ/L (3.5-5.1); SODIUM LEVEL 142 MEQ/L (136-145); TOTAL PROTEIN 6.4 GM/DL (6.4-8.2)
--- NOTE | 2021-02-01 08:29 | ECGEPIP ---
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
[2021-02-01] MEDS ORDERED: FUROSEMIDE 20 MG TAB PO SCH (09:00)
[2021-02-01] MEDS ORDERED: ASPIRIN 81MG ENTERIC TABLET PO SCH (09:00)
[2021-02-01] MEDS ORDERED: VERAPAMIL 180MG EXTENDED RELEASE TABLET PO SCH (09:00)
[2021-02-01] MEDS ORDERED: LACTOBACILLUS ACIDOPHILUS CAP (BACID) PO SCH (09:00)
[2021-02-01] MEDS ORDERED: **hydrALAZINE** 50 MG TAB PO SCH (09:00)
[2021-02-01 09:41] LABS: BASO % 0.3 % (0.0-1.0); HEMATOCRIT 41.2 % (36.0-47.0); HEMOGLOBIN 13.3 g/dl (12.0-15.5); LYMPH # 0.9 10^3/uL (1.5-5.0); MEAN CORPUSCULAR HEMOGLOBIN 30.7 pg (27.0-33.0); MEAN CORPUSCULAR HGB CONC 32.3 g/dl (32.0-36.5); MEAN CORPUSCULAR VOLUME 95.2 fl (80.0-96.0); MONO # 0.3 10^3/uL (0.0-0.8); MONO % 6.4 % (2.0-8.0); NEUTROPHILS # 2.7 10^3/uL (1.5-8.5); PLATELET COUNT, AUTOMATED 160 10^3/uL (150-450); RED BLOOD COUNT 4.33 10^6/uL (4.00-5.40); WHITE BLOOD COUNT 3.9 10^3/uL (4.0-10.0)
[2021-02-01] MEDS: PREGABALIN 75 MG CAP(LYRICA) PO SCH (09:51)
[2021-02-01] MEDS: GABAPENTIN 400MG CAP PO SCH (09:51)
[2021-02-01] MEDS: APIXABAN 5 MG TAB (ELIQUIS) PO SCH (09:51)
[2021-02-01] MEDS: PRIMIDONE 50 MG TAB PO SCH (09:51)
[2021-02-01 09:54] VITALS: BP 137/77
[2021-02-01] MEDS ORDERED: ELIQ5TAB4 PO (10:17)
[2021-02-01] MEDS ORDERED: methylPREDNISolone 125MG 2ML VIAL IV PRN (11:45)
[2021-02-01] MEDS ORDERED: EPINEPHrine INJ 1 MG/ML 1ML AMP IM PRN (11:45)
[2021-02-01] MEDS ORDERED: diphenhydrAMINE 50MG/ML VIAL (J1200) IV PRN (11:45)
[2021-02-01] MEDS ORDERED: ALBUTEROL SULFATE 2.5 MG/0.5 ML INH NEB SOLN INH PRN (11:45)
[2021-02-01] MEDS ORDERED: CASIRIVIMAB/IMDEVIMAB 1,200 MG in NS 250 ML IV ONE (11:45)
[2021-02-01 14:00] VITALS: BP 147/74
[2021-02-01] MEDS ORDERED: SOLIFENACIN 5 MG TAB PO SCH (16:00)
--- NOTE | 2021-02-01 19:38 | DS.PDOC ---
Discharge Summary General Date of Admission Jan 31, 2021 at 18:55 Date of Discharge Monday, February 01, 2021 Attending Physician: IKER AYOUB DO Discharge Summary PROCEDURES PERFORMED DURING STAY: None ADMITTING DIAGNOSES: Asymptomatic COVID-19 infection Small occlusive pulmonary embolism in segmental artery of the posterior segment of the right upper lobe HFpEF, not decompensation Obstructive sleep apnea, uses CPAP nightly Chronic kidney disease stage IIIa Severe persistent asthma, not in exacerbation Hypothyroidism Chronic pain, controlled GERD History migraine DISCHARGE DIAGNOSES: Asymptomatic COVID-19 infection Small occlusive pulmonary embolism in segmental artery of the posterior segment of the right upper lobe, stable with AC initiated HFpEF, not decompensation Obstructive sleep apnea, uses CPAP nightly Chronic kidney disease stage IIIa Severe persistent asthma, not in exacerbation Hypothyroidism GERD Chronic pain, controlled History of migraine COMPLICATIONS/CHIEF COMPLAINT: Covid-19, Pulmonary Embolism. HISTORY OF PRESENT ILLNESS: Evita is a 60yo female with notable PMH of HFpEF (2020 echo showed diastolic dysfunction), severe persistent asthma (follows with pulmonary as outpatient), chronic kidney disease stage IIIa, obstructive sleep apnea on home CPAP, hypothyroidism, acid reflux, migraines, and chronic pain who presented to the [facility] ED on the evening of 02/01/2020 1C/O shortness of breath. Roughly 48 hours earlier on 01/29, patient felt as though she had "bronchitis," as she was experiencing a "wet cough" that was productive of light rosado sputum. She reports that the sputum change in color to dark brown. She had associated f atigue and weakness. She had tried taking Robitussin-DM but this did not help alleviate any of her symptoms. She reports feeling so fatigued that she missed taking her home medications over the past 48 hours. 1 day into her symptoms on 01/30, she took a home Covid test at [facility] and was positive. On the night prior to presentation (evening of 01/30) patient felt significant acute shortness of breath that was progressing with associated chills. She denied any associated pleuritic chest pain, cardiac like anterior chest pain, PND. She did have some intermittent nausea without emesis as well as diarrhea that began on the morning of 01/31. Upon review at admission, she denied any travel outside of [facility] or [facility]. She has been in contact with her , daughter, and grandson who all have Covid. Of note, the patient is unvaccinated against the novel coronavirus. Upon presentation to the ED, a CTA of the chest revealed a small occlusive throm bus in the segmental artery to the posterior aspect of the right upper lobe as well as a nonocclusive thrombus in the right lower lobe segmental artery but no right heart strain was seen as there was a normal RV to LV ratio; as well as the aforementioned positive novel denis virus result. She was started on 6 mg intravenous dexamethasone daily and did receive 1 dose of remdesivir in the ED. The patient was not hypoxic at the time of presentation. HOSPITAL COURSE: Patient was admitted to the 4 main [facility] floor under contact isolation precautions. As stated above, 6 mg IV dexamethasone daily was initiated. She did receive 1 dose of remdesivir in the ED but this was not continued upon adm ission as she was not hypoxic. In fact, the patient remained saturating well on room air throughout the entirety of her stay. She was initially given therapeutic Lovenox (weightbase) of 80 mg in the ED in the setting of her hypercoagulable state and positive novel coronavirus test. Upon admission she was switched over to Eliquis 10 mg twice a day for 7 days to start, with a plan to transfer over to 5 mg twice a day. Due to the patient not being hypoxic, she was consented and signed to receive monoclonal antibodies upon discharge today. DISCHARGE MEDICATIONS: Please see below. ALLERGIES: Please see below. PHYSICAL EXAMINATION ON DISCHARGE: VITAL SIGNS: Please see below. GENERAL: Pleasant white female seated upright in bed. Pleasant demeanor. Not appear to be in any acute distress. HEENT: NC, AT. Noninjected, anicteric sclera. NECK: No significant cervical supraclavicular lymphadenopathy appreciated. Trachea midline. CARDIOVASCULAR EXAMINATION: RESPIRATORY EXAMINATION: Slightly decreased tidal volume with symmetric chest expansion. No significant adventitious breath sounds appreciated. A cough is elicited at times during auscultation. ABDOMINAL EXAMINATION: Soft, nontender nondistended. Slightly obese. Normoactive bowel sounds throughout. No rigidity appreciated EXTREMITIES: Bilateral lower extremities free of pitting edema. 2+ radial pulses bilaterally. No signs of cyanosis. NEUROLOGICAL EXAMINATION: No gross focal neurologic deficits appreciated. Nondysarthric speech. Responding appropriate all questions and commands. PSYCHIATRIC EXAMINATION: Mood and affect appear appropriate. LABORATORY DATA: Please see below. IMAGING: Portable chest x-ray, 01/31/2021 FINDINGS: The mediastinum and cardiac silhouette are stable and within normal limits for portable technique. The lung rice are relatively clear although very subtle left basilar atelectasis cannot be excluded. Skeletal structures are intact. IMPRESSION: Possible left basilar atelectasis. CT angio of the chest, 01/31/2021 FINDINGS: Pulmonary arteries: Normal. No pulmonary emboli. Aorta: There is mild atherosclerosis in the thoracic aorta. There is no aortic dissection or aneurysm. Lungs: Bibasilar atelectasis. Lungs otherwise clear. Small filling defect demonstrated in a right lower lobe segmental artery consistent with a nonocclusive thrombus (401, 83). Small occlusive thrombus in a segmental artery to the posterior segment of the right upper lobe (401, 50). Pleural spaces: Unremarkable. No pneumothorax. No pleural effusion. Heart: Normal RV LV ratio indicating no evidence of right heart strain. Lymph nodes: Unremarkable. No enlarged lymph nodes. Gallbladder and bile ducts: Cholecystectomy. Bones/joints: The spine demonstrates mild degenerative changes. Soft tissues: Unremarkable. IMPRESSION: 1. There is no aortic dissection or aneurysm. 2. Small pulmonary emboli as described above. 3. Normal RV LV ratio indicating no evidence of right heart strain. 4. No acute pulmonary parenchymal abnormalities. A critical call has been initiated in order to speak with the ordering physician/practitioner. This report will be amended once consultation has occurred. PROGNOSIS: Good ACTIVITY: As tolerated DIET: Low-sodium and renal diet DISPOSITION: 01 Home, Self-Care. DISCHARGE INSTRUCTIONS & ITEMS TO FOLLOWUP ON ON OUTPATIENT: -Please follow-up with primary care physician with the next 5 business days; follow-up with your pca and speech communication professor as previously scheduled. -Should presenting symptoms return and/or acutely worsen, or should you have significant delayed reaction to monoclonal treatment, please return to the ED. Please comply with above treatment plan. -Thank you for the opportunity to participate in your care. DISCHARGE CONDITION: Stable TIME SPENT ON DISCHARGE: Approximately 36 minutes were spent on discharge. Vital Signs/I&Os Vital Signs Date Time Temp Pulse Resp B/P (MAP) Pulse Ox O2 Delivery O2 Flow Rate FiO2 02/01/21 14:00 97.7 100 18 147/74 (98) 94 Room Air 02/01/21 06:45 1.0 I&O- Last 24 Hours up to 6 AM 02/01/21 06:00 Intake Total 0 ml Balance 0 ml Laboratory Data Labs 24H Laboratory Tests 2 01/31/21 19:00: Coronavirus (COVID-19)(PCR) POSITIVEA, Influenza Type A (RT-PCR) NEGATIVE, Influenza Type B (RT-PCR) NEGATIVE, Respiratory Syncytial Virus (PCR) NEGATIVE 01/31/21 20:18: Immature Granulocyte % (Auto) 0.4, Neutrophils (%) (Auto) 50.1, Lymphocytes (%) (Auto) 34.1, Monocytes (%) (Auto) 14.2H, Eosinophils (%) (Auto) 0.6, Basophils (%) (Auto) 0.6, Neutrophils # (Auto) 2.6, Lymphocytes # (Auto) 1.8, Monocytes # (Auto) 0.7, Eosinophils # (Auto) 0.0, Basophils # (Auto) 0.0, Nucleated Red Blood Cells % (auto) 0.0, Prothrombin Time 14.1H, Prothromb Time International Ratio 1.05, Activated Partial Thromboplast Time 28.4, Fibrinogen 315, D-Dimer, Quantitative 3245.33H, Anion Gap 6L, Glomerular Filtration Rate 59.2, Calcium Level 8.9, Magnesium Level 2.5H, Ferritin 111, Total Bilirubin 0.3, Direct Bilirubin 0.1, Aspartate Amino Transf (AST/SGOT) 35, Alanine Aminotransferase (ALT/SGPT) 42, Alkaline Phosphatase 86, Lactate Dehydrogenase 248H, C-Reactive Protein, Quantitative 1.03H, OB-Xfw-S-Type Natriuretic Peptide 197H, Total Protein 6.6, Albumin 3.7, Albumin/Globulin Ratio 1.3, Procalcitonin <0.05 02/01/21 06:15: Anion Gap 9, Glomerular Filtration Rate > 60.0, Calcium Level 8.7L, Magnesium Level 2.3, Total Bilirubin 0.2, Direct Bilirubin < 0.1, Aspartate Amino Transf (AST/SGOT) 34, Alanine Aminotransferase (ALT/SGPT) 41, Alkaline Phosphatase 84, Total Protein 6.4, Albumin 3.5, Albumin/Globulin Ratio 1.2 02/01/21 09:28: Immature Granulocyte % (Auto) 0.3, Neutrophils (%) (Auto) 69.0H, Lymphocytes (%) (Auto) 24.0, Monocytes (%) (Auto) 6.4, Eosinophils (%) (Auto) 0.0, Basophils (%) (Auto) 0.3, Neutrophils # (Auto) 2.7, Lymphocytes # (Auto) 0.9L, Monocytes # (Au to) 0.3, Eosinophils # (Auto) 0.0, Basophils # (Auto) 0.0, Nucleated Red Blood Cells % (auto) 0.0 CBC/BMP Laboratory Tests 01/31/21 20:18 02/01/21 06:15 02/01/21 09:28 Microbiology Microbiology 01/31/21 Blood Culture - Preliminary, Resulted No growth after 24 hours . All specim... 01/31/21 Blood Culture - Preliminary, Resulted No growth after 24 hours . All specim... Discharge Medications Scheduled Apixaban (Eliquis) 5 Mg Tab.ds.pk, 5 MG PO ASDIRECTED Take as directed by instructions within starter pack. Beclomethasone Dipropionate (Qvar Redihaler) 80 Mcg/Act Hfa.aeroba, 2 PUFFS INH BID, (Reported) Fremanezumab-Vfrm (Ajovy) 225 Mg/1.5 Ml Syringe, 225 MG SC QMONTH, (Reported) LAST DOSE AROUND January Furosemide (Furosemide) 20 Mg Tablet, 20 MG PO DAILY, (Reported) Gabapentin (Gabapentin) 400 Mg Cap, 400 MG PO BID, (Reported) Hydralazine HCl (Hydralazine HCl) 25 Mg Tablet, 50 MG PO BID, (Reported) TAKES 25MG EXTRA PER DOSE IF SBP>140 Levothyroxine Sodium (Levothyroxine Sodium) 125 Mcg Tab, 125 MCG PO DAILY, (Reported) Losartan Potassium (Losartan Potassium) 100 Mg Tablet, 100 MG PO QHS, (Reported) Mirabegron (Myrbetriq) 50 Mg Tab.er.24h, 50 MG PO DAILY, (Reported) Montelukast Sodium (Singulair) 10 Mg Tablet, 10 MG PO QHS, (Reported) Multivitamins (Thera M Plus Tablet) 1 Each Tablet, 1 TAB PO BID, (Reported) Omalizumab (Xolair) 150 Mg Zaina, 150 MG SC Q2WK, (Reported) Prednisone (Prednisone) 10 Mg Tablet, 10 MG PO TAPER, (Reported) 40MG FOR 5 DAYS, 30MG FOR 5 DAYS, 20MG FOR 5 DAYS, 10MG FOR 5 DAYS, 5MG FOR 5 DAYS: PATIENT STGATES SHE IS STILL TAKING 20MG Pregabalin (Lyrica) 150 Mg Capsule, 150 MG PO TID, (Reported) Primidone (Mysoline) 50 Mg Tab, 100 MG PO BID, (Reported) Salmeterol/Fluticasone (Advair 500-50 Diskus) 1 Each Blst.w.dev, 1 PUFF INH BID, (Reported) Solifenacin Succinate (Vesicare) 10 Mg Tablet, 10 MG PO QPM, (Reported) TAKES AROUND 1600 Verapamil HCl (Verapamil HCl) 360 Mg Cap24h.pel, 360 MG PO DAILY, (Reported) Scheduled PRN Albuterol Sulfate (Proair Hfa) 8.5 Gm Hfa.aer.ad, 2 PUFF INH Q4H PRN for SHORTNESS OF BREATH, (Reported) Baclofen (Baclofen) 10 Mg Tablet, 10 MG PO TID PRN for MUSCLE SPASMS, (Reported) Ipratropium/Albuterol Sulfate (Iprat-Albut 0.5-3(2.5) mg/3 ml) 3 Ml Ampul.neb, 3 ML INH Q4H PRN for SHORTNESS OF BREATH, (Reported) Rizatriptan Benzoate (Maxalt Research Geologist) 10 Mg Tab.rapdis, 10 MG PO BID PRN for SALO DAVID, (Reported) Zolpidem Tartrate (Ambien) 5 Mg Tab, 5 MG PO QHS PRN for INSOMNIA, (Reported) Allergies Coded Allergies: Penicillins (Verified Allergy, Intermediate, HIVES, 09/15/18) TAPE (Verified Allergy, Intermediate, open area, 11/15/19) ocean transportation intermediary application of adhesive aspirin (Verified Allergy, Intermediate, HIVES, 09/15/18) tiagabine (Verified Allergy, Intermediate, ALTERED LEVEL OF CONSCIOUSNESS, NAUSEA, FATIGUE, 09/15/18) acetaminophen (Verified Allergy, Unknown, ITCHING, RASH, HIVES, 09/15/18) codeine (Verified Allergy, Unknown, SENSITIVE, 09/15/18) hydrocodone (Verified Allergy, Unknown, ITCHING, RASH, HIVES, 09/15/18) carbamazepine (Verified Adverse Reaction, Severe, LIVER DAMAGE, MALAISE, 09/15/18) milnacipran (Verified Adverse Reaction, Intermediate, SKIN CRAWLING, NAUESA, DIZZINESS, 09/15/18) duloxetine (Verified Adverse Reaction, Mild, LETHARGIC, 09/15/18) nortriptyline (Verified Adverse Reaction, Mild, LETHARGIC, ANXIETY, NAUSEA, 09/15/18) oxcarbazepine (Verified Adverse Reaction, Mild, FATIGUE, VOMITING, 09/15/18) venlafaxine (Verified Adverse Reaction, Mild, MALAISE, DIZZINESS, NAUSEA, 09/15/18) GME ATTESTATION GME ATTESTATION My faculty preceptor for this patient encounter was physically present during the encounter and was fully available. All aspects of the patient interview, examination, medical decision making process, and medical care plan development were reviewed and approved by the faculty preceptor. The faculty preceptor is aware and concurs with the plan as stated in the body of this note and will attest to such by his/her cosignature. ATTENDING NOTE I, Iker Ayoub DO, have independently examined this patient and performed my own physical exam, as well as reviewed the documentation and edited where necessary. I have discussed in detail with the resident the findings and plan of treatment as documented by the resident and edited their note. I agree with their findings and treatment plan and have edited their documentation. I will continue to follow the patient during this hospital stay. ALEJANDRO BRYSON D.O. Feb 01, 2021 19:38 IKER AYOUB DO Feb 02, 2021 07:13
[2021-02-01] MEDS ORDERED: REMDESIVIR 100 MG in NS 250 ML IV SCH (21:00)
[2021-02-01] MEDS ORDERED: SODIUM CHLORIDE 0.9% INJ 10 ML SYR IV SCH (22:00)
== END 2021-02-01 15:00 | disposition home or self-care (01) | DRG 177 ==
LOC: M ED 13:52 → M ED INP 18:55 → ENRESERV 19:58 → M 4MAIN 21:52
PROVIDERS: ADMIT General Practice; ATTEND Family Medicine
PROC: XW033E5 Introduction of Remdesivir Anti-infective into Peripheral Vein, Percutaneous Approach, New Technology Group 5 (ICD-10-PCS; principal; 2021-01-31)
PROC: 3E0333Z Introduction of Anti-inflammatory into Peripheral Vein, Percutaneous Approach (ICD-10-PCS; 2021-01-31)
DX: U07.1 COVID-19 (principal); I26.93 Single subsegmental thrombotic pulmonary embolism without acute cor pulmonale; I50.32 Chronic diastolic (congestive) heart failure; R19.7 Diarrhea, unspecified; J45.50 Severe persistent asthma, uncomplicated; G47.00 Insomnia, unspecified; K21.9 Gastro-esophageal reflux disease without esophagitis; E03.9 Hypothyroidism, unspecified; K57.30 Diverticulosis of large intestine without perforation or abscess without bleeding; K64.8 Other hemorrhoids; M54.41 Lumbago with sciatica, right side; M79.7 Fibromyalgia; G47.33 Obstructive sleep apnea (adult) (pediatric); Z86.14 Personal history of Methicillin resistant Staphylococcus aureus infection; Z90.49 Acquired absence of other specified parts of digestive tract; Z96.652 Presence of left artificial knee joint; Z87.891 Personal history of nicotine dependence; N18.31 Chronic kidney disease, stage 3a; G89.29 Other chronic pain; G43.909 Migraine, unspecified, not intractable, without status migrainosus; Z79.899 Other long term (current) drug therapy; Z88.0 Allergy status to penicillin; Z88.5 Allergy status to narcotic agent; Z88.6 Allergy status to analgesic agent; Z88.8 Allergy status to other drugs, medicaments and biological substances; Z91.048 Other nonmedicinal substance allergy status

== ENCOUNTER → 2021-02-01 | Outpatient (CLI) | payer MEDICARE, OTHER ==
[~2021-02-01] MED LIST changes: +AJOV225I SC; +ALBUTEROL 90 MCG/ACT 8GM HFA INHALER INH PRN; +ALBUTEROL SULFATE 2.5 MG/0.5 ML INH NEB SOLN INH PRN; +BACL10TA2 PO; +CASIRIVIMAB/IMDEVIMAB 1,200 MG in NS 250 ML IV ONE; +ELIQ5TAB4 PO; +EPINEPHrine INJ 1 MG/ML 1ML AMP IM PRN; +FURO20TA2 PO; +HYDR25TA PO; +IPRA0.00 INH; +LOSA100T50 PO; +MAXA10TA15 PO; +PROAAER10 INH; +QVAR80AE8 INH; +VERA360C PO; +VESI10TA2 PO; +VITMTA PO; +diphenhydrAMINE 50MG/ML VIAL (J1200) IV PRN; +methylPREDNISolone 125MG 2ML VIAL IV PRN
[2021-02-01 15:30] VITALS: BP 138/78
[2021-02-01 15:33] VITALS: BP 147/89
[2021-02-01 16:00] VITALS: BP 138/78
[2021-02-01 16:30] VITALS: BP 138/66
[2021-02-01 17:27] VITALS: BP 146/86
== END ==
LOC: M OPCLI4 15:11
PROVIDERS: ATTEND Family Medicine
DX: U07.1 COVID-19 (principal); Z88.0 Allergy status to penicillin; Z88.5 Allergy status to narcotic agent; Z88.6 Allergy status to analgesic agent; Z88.8 Allergy status to other drugs, medicaments and biological substances

== ENCOUNTER → 2021-03-22 | Outpatient (CLI) | payer MEDICARE, OTHER ==
[~2021-03-22] MED LIST changes: -ALBUTEROL 90 MCG/ACT 8GM HFA INHALER INH PRN; -ALBUTEROL SULFATE 2.5 MG/0.5 ML INH NEB SOLN INH PRN; -CASIRIVIMAB/IMDEVIMAB 1,200 MG in NS 250 ML IV ONE; -EPINEPHrine INJ 1 MG/ML 1ML AMP IM PRN; +LOSA100T45 PO; -LOSA100T50 PO; +LOSA25TA13 PO; -LOSA25TA14 PO; -diphenhydrAMINE 50MG/ML VIAL (J1200) IV PRN; -methylPREDNISolone 125MG 2ML VIAL IV PRN
== END ==
LOC: M RAD 09:44
PROVIDERS: ATTEND Physician Assistant Surgical
DX: M25.462 Effusion, left knee (principal)
CPT/HCPCS: 78315; A9503

== ENCOUNTER → 2021-08-06 | Outpatient (REF) | payer MEDICARE, OTHER ==
[2021-08-06 17:05] LABS: PERCENT SATURATION 13.1 % (13.2-45.0)
== END ==
LOC: M LAB REF 16:25
PROVIDERS: ATTEND Nurse Practitioner Adult Health
DX: I12.9 Hypertensive chronic kidney disease with stage 1 through stage 4 chronic kidney disease, or unspecified chronic kidney disease (principal); D64.9 Anemia, unspecified

== ENCOUNTER → 2021-09-19 | Outpatient (CLI) | payer MEDICARE, OTHER | LOC: M PLALAB 15:07 | PROVIDERS: ATTEND Physical Medicine & Rehabilitation | DX: M51.26 Other intervertebral disc displacement, lumbar region (principal) ==

== ENCOUNTER → 2021-10-29 | Outpatient (REF) | payer MEDICARE, OTHER | LOC: M PLALAB 16:57 | PROVIDERS: ATTEND Physical Medicine & Rehabilitation | DX: M54.16 Radiculopathy, lumbar region (principal); M48.061 Spinal stenosis, lumbar region without neurogenic claudication ==

== ENCOUNTER → 2022-01-30 | Outpatient (REF) | payer MEDICARE, OTHER | LOC: M LAB REF 16:34 | PROVIDERS: ATTEND Nurse Practitioner Adult Health | DX: N39.0 Urinary tract infection, site not specified (principal) ==

== ENCOUNTER 2022-02-27 18:00 | Emergency (ER) | payer MEDICARE, OTHER ==
[~2022-02-27] VITALS: Ht 157.5 cm; Wt 78.2 kg
[~2022-02-27 18:00] MED LIST changes: -ASMA1AER3 IN; +MOME13HF5 IN
[2022-02-27 21:52] VITALS: BP 113/56
[2022-02-28] MEDS ORDERED: ONDA8TAB8 PO (20:01)
[2022-02-28] MEDS ORDERED: LEVE500T5 PO (20:01)
[2022-02-28] MEDS ORDERED: FURO40TA2 PO (20:03)
[2022-02-28] MEDS ORDERED: med rec comment (20:05)
== END 2022-02-28 00:56 | disposition left against medical advice (07) ==
LOC: M ED 18:00
DX: Z53.21 Procedure and treatment not carried out due to patient leaving prior to being seen by health care provider (principal)

== ENCOUNTER 2022-02-28 14:42 | Inpatient (IN) | payer MEDICARE, OTHER ==
[~2022-02-28] VITALS: Ht 157.5 cm; Wt 79.8 kg
[2022-02-28] MEDS ORDERED: ISOVUE-370 76% 100ML VIAL As Ordered ONE (14:52)
[2022-02-28 15:23] LABS: BASO # 0.1 10^3/uL (0.0-0.2); BASO % 0.6 % (0.0-1.0); EOS # 0.2 10^3/uL (0.0-0.5); EOS % 2.1 % (0.0-3.0); HEMATOCRIT 43.9 % (36.0-47.0); HEMOGLOBIN 14.6 g/dl (12.0-15.5); LYMPH # 2.2 10^3/uL (1.5-5.0); LYMPH % 26.9 % (24.0-44.0); MEAN CORPUSCULAR HEMOGLOBIN 30.5 pg (27.0-33.0); MEAN CORPUSCULAR HGB CONC 33.3 g/dl (32.0-36.5); MEAN CORPUSCULAR VOLUME 91.6 fl (80.0-96.0); MONO # 0.7 10^3/uL (0.0-0.8); MONO % 8.2 % (2.0-8.0); PLATELET COUNT, AUTOMATED 214 10^3/uL (150-450); RED BLOOD COUNT 4.79 10^6/uL (4.00-5.40); WHITE BLOOD COUNT 8.1 10^3/uL (4.0-10.0)
[2022-02-28 15:32] VITALS: BP 160/104
[2022-02-28 15:43] LABS: CK-MB VALUE MASS < 1.0 NG/ML (<3.6)
[2022-02-28 15:46] LABS: BLOOD UREA NITROGEN 19 MG/DL (9-23); CALCIUM LEVEL 10.1 MG/DL (8.3-10.6); CARBON DIOXIDE LEVEL 25 MMOL/L (20-31); CHLORIDE LEVEL 101 MMOL/L (98-107); CPK CREATINE PHOSPHOKINASE 221 U/L (34-145); CREATININE FOR GFR 1.51 MG/DL (0.55-1.30); GLOMERULAR FILTRATION RATE 36.3 (>39); GLUCOSE, FASTING 103 MG/DL (74-106); MB/CK RELATIVE INDEX 0.45 (< OR =4); POTASSIUM SERUM 3.6 MMOL/L (3.5-5.1); SODIUM LEVEL 137 MMOL/L (136-145)
[2022-02-28 15:58] LABS: PARTIAL THROMBOPLASTIN TIME 27.3 SECONDS (24.8-34.2)
[2022-02-28 16:00] LABS: RSV AMPLIFICATION NEGATIVE (NEGATIVE)
[2022-02-28 16:31] LABS: LIPASE 71 U/L (12-53)
[2022-02-28 16:31] LABS: INR 1.05; PROTHROMBIN TIME 13.9 SECONDS (12.5-14.5)
[2022-02-28 16:33] LABS: ALBUMIN 4.4 G/DL (3.2-5.2); ALKALINE PHOSPHATASE 112 U/L (46-116); ALT/SGPT 21 U/L (7.0-40); AST/SGOT 25 U/L (<34); BILIRUBIN,DIRECT 0.2 MG/DL (<0.4); BILIRUBIN,TOTAL 0.7 MG/DL (0.3-1.2); TOTAL PROTEIN 7.4 G/DL (5.7-8.2)
[2022-02-28] MEDS ORDERED: NS 1,000 ML IV ONE (18:55)
[2022-02-28] MEDS ORDERED: ACETAMINOPHEN TAB 650MG DOSE (2X325MG) PO ONE (19:30)
[2022-02-28] MEDS ORDERED: ONDA8TAB8 PO (20:01)
[2022-02-28] MEDS ORDERED: LEVE500T5 PO (20:01)
[2022-02-28] MEDS ORDERED: PROPOFOL 1,000 MG/100 ML VIAL As Ordered ONE (20:02)
[2022-02-28] MEDS ORDERED: FURO40TA2 PO (20:03)
[2022-02-28] MEDS ORDERED: med rec comment (20:05)
[2022-02-28] MEDS ORDERED: HOME MED LIST COMPLETE! XX SCH (20:05)
[2022-02-28] MEDS ORDERED: CLOPIDOGREL 75 MG TAB PO STA (22:24)
[2022-02-28 23:35] VITALS: BP 143/89
[2022-03-01] VITALS (15 sets, daily range): BP systolic 117–131; BP diastolic 56–70; O2SAT 89–98
[2022-03-01] MEDS ORDERED: IPRATROPIUM 0.5MG/ALBUTEROL 2.5MG INH SOL UD 3ML (DUONEB) INH PRN (00:15)
[2022-03-01] MEDS ORDERED: BACLOFEN 10 MG TAB PO PRN (00:15)
[2022-03-01 00:59] LABS: BASO # 0.1 10^3/uL (0.0-0.2); BASO % 0.7 % (0.0-1.0); EOS # 0.2 10^3/uL (0.0-0.5); HEMATOCRIT 39.8 % (36.0-47.0); HEMOGLOBIN 13.1 g/dl (12.0-15.5); LYMPH # 2.3 10^3/uL (1.5-5.0); LYMPH % 31.8 % (24.0-44.0); MEAN CORPUSCULAR HEMOGLOBIN 30.6 pg (27.0-33.0); MEAN CORPUSCULAR HGB CONC 32.9 g/dl (32.0-36.5); MONO # 0.6 10^3/uL (0.0-0.8); MONO % 7.7 % (2.0-8.0); NEUTROPHILS # 4.2 10^3/uL (1.5-8.5); NEUTROPHILS % 57.5 % (36.0-66.0); PLATELET COUNT, AUTOMATED 150 10^3/uL (150-450); RED BLOOD COUNT 4.28 10^6/uL (4.00-5.40); WHITE BLOOD COUNT 7.4 10^3/uL (4.0-10.0)
[2022-03-01 01:07] LABS: INR 1.03; PROTHROMBIN TIME 13.7 SECONDS (12.5-14.5)
[2022-03-01 01:09] LABS: PARTIAL THROMBOPLASTIN TIME 24.7 SECONDS (24.8-34.2)
[2022-03-01 01:14] LABS: BILIRUBIN,DIRECT 0.2 MG/DL (<0.4)
[2022-03-01 01:22] LABS: ALBUMIN 3.6 G/DL (3.2-5.2); BILIRUBIN,TOTAL 0.6 MG/DL (0.3-1.2); CALCIUM LEVEL 9.4 MG/DL (8.3-10.6); CHOLESTEROL RISK RATIO 3.08 (<5); CREATININE FOR GFR 1.29 MG/DL (0.55-1.30); GLOMERULAR FILTRATION RATE 43.5 (>39); HDL CHOLESTEROL 47.4 MG/DL (>40); LDL CHOLESTEROL 74.4 MG/DL (<100); MB/CK RELATIVE INDEX 0.19 (< OR =4); POTASSIUM SERUM 3.7 MMOL/L (3.5-5.1); TOTAL PROTEIN 6.1 G/DL (5.7-8.2)
[2022-03-01] MEDS: NS 1,000 ML IV SCH ×2 (01:32→09:23)
[2022-03-01] MEDS ORDERED: KCL 10MEQ/100ML SWI (KRUN) 10 MEQ in IV 1 EA IV ONE (01:35)
[2022-03-01] MEDS: ALBUTEROL SULFATE 2.5MG/0.5ML INH NEB SOLN NEB SCH ×6 (03:18→23:59)
[2022-03-01] MEDS: LEVOTHYROXINE 125MCG TABLET (0.125MG) PO SCH (05:34)
[2022-03-01] MEDS: HEPARIN SOD (PORCINE) 5000UNITS/ML 1ML VIAL/SYRINGE SC SCH ×3 (05:34→21:02)
[2022-03-01] MEDS ORDERED: levETIRAcetam INJection 500 MG in D5W MINI-BAG PLUS 100 ML IV SCH (06:00)
[2022-03-01 07:50] LABS: CALCIUM LEVEL 9.1 MG/DL (8.3-10.6); CREATININE FOR GFR 1.06 MG/DL (0.55-1.30); GLOMERULAR FILTRATION RATE 54.6 (>39); POTASSIUM SERUM 3.3 MMOL/L (3.5-5.1)
[2022-03-01 08:06] LABS: THYROID STIMULATING HORMONE 6.588 uIU/ML (0.55-4.78)
[2022-03-01] MEDS ORDERED: POTASSIUM CHLORIDE 10MEQ SR TABLET PO ONE ×2 (09:00→18:40)
[2022-03-01] MEDS ORDERED: GABAPENTIN 400MG CAP PO SCH (09:00)
[2022-03-01] MEDS: VERAPAMIL 180MG EXTENDED RELEASE TABLET PO SCH (09:23)
[2022-03-01] MEDS: PRIMIDONE 50MG TAB PO SCH ×2 (09:24→21:01)
[2022-03-01] MEDS: **hydrALAZINE** 50 MG TAB PO SCH ×2 (09:24→21:01)
[2022-03-01 11:02] LABS: FREE T4 1.06 NG/DL (0.89-1.76)
[2022-03-01] MEDS ORDERED: RIZATRIPTAN MLT 10 MG TAB PO PRN (11:35)
[2022-03-01] MEDS: SOLIFENACIN 5 MG TAB PO SCH (15:26)
[2022-03-01] MEDS: GABAPENTIN 400MG CAP PO SCH ×2 (15:26→21:02)
[2022-03-01 15:29] LABS: FERRITIN 52.4 NG/ML (7.3-270.7)
[2022-03-01 18:16] LABS: BLOOD UREA NITROGEN 12 MG/DL (9-23); CALCIUM LEVEL 8.8 MG/DL (8.3-10.6); CARBON DIOXIDE LEVEL 25 MMOL/L (20-31); CHLORIDE LEVEL 107 MMOL/L (98-107); CREATININE FOR GFR 0.91 MG/DL (0.55-1.30); GLOMERULAR FILTRATION RATE > 60.0 (>39); GLUCOSE, FASTING 91 MG/DL (74-106); POTASSIUM SERUM 3.2 MMOL/L (3.5-5.1); SODIUM LEVEL 142 MMOL/L (136-145)
[2022-03-01 18:57] LABS: MAGNESIUM LEVEL 1.9 MG/DL (1.8-2.4)
[2022-03-01] MEDS: ADVAIR HFA 230/21MCG INHALER INH SCH (20:24)
[2022-03-01 20:48] LABS: BLOOD UREA NITROGEN 13 MG/DL (9-23); CARBON DIOXIDE LEVEL 26 MMOL/L (20-31); CHLORIDE LEVEL 109 MMOL/L (98-107); CREATININE FOR GFR 0.88 MG/DL (0.55-1.30); GLOMERULAR FILTRATION RATE > 60.0 (>39); GLUCOSE, FASTING 122 MG/DL (74-106); POTASSIUM SERUM 3.4 MMOL/L (3.5-5.1); SODIUM LEVEL 142 MMOL/L (136-145)
[2022-03-01] MEDS: levETIRAcetam 250MG TABLET (KEPPRA) PO SCH (21:01)
[2022-03-01] MEDS: PREGABALIN 75 MG CAP(LYRICA) PO SCH (21:01)
[2022-03-02] VITALS (11 sets, daily range): BP systolic 108–142; BP diastolic 55–73; O2SAT 92–97
[2022-03-02] MEDS: ALBUTEROL SULFATE 2.5MG/0.5ML INH NEB SOLN NEB SCH ×6 (03:59→23:35)
[2022-03-02] MEDS: LEVOTHYROXINE 125MCG TABLET (0.125MG) PO SCH (05:49)
[2022-03-02] MEDS: HEPARIN SOD (PORCINE) 5000UNITS/ML 1ML VIAL/SYRINGE SC SCH ×3 (05:49→20:46)
[2022-03-02] MEDS: ADVAIR HFA 230/21MCG INHALER INH SCH ×2 (07:56→20:28)
[2022-03-02] MEDS: PREGABALIN 75 MG CAP(LYRICA) PO SCH ×2 (08:46→20:45)
[2022-03-02] MEDS: GABAPENTIN 400MG CAP PO SCH ×3 (08:46→20:45)
[2022-03-02] MEDS: FUROSEMIDE 40 MG TAB PO SCH (08:46)
[2022-03-02] MEDS: **hydrALAZINE** 50 MG TAB PO SCH ×2 (08:47→20:44)
[2022-03-02] MEDS: PRIMIDONE 50MG TAB PO SCH ×2 (08:47→20:45)
[2022-03-02] MEDS: levETIRAcetam 250MG TABLET (KEPPRA) PO SCH ×2 (08:47→20:45)
[2022-03-02] MEDS: VERAPAMIL 180MG EXTENDED RELEASE TABLET PO SCH (08:48)
[2022-03-02] MEDS: SOLIFENACIN 5 MG TAB PO SCH (15:01)
[2022-03-02] MEDS ORDERED: LOSARTAN 50MG TABLET PO SCH ×2 (21:00)
[2022-03-03 03:50] VITALS: BP 129/64
[2022-03-03] MEDS: ALBUTEROL SULFATE 2.5MG/0.5ML INH NEB SOLN NEB SCH ×4 (04:00→15:46)
[2022-03-03 06:04] LABS: HEMATOCRIT 37.8 % (36.0-47.0); HEMOGLOBIN 12.2 g/dl (12.0-15.5); MEAN CORPUSCULAR HEMOGLOBIN 30.9 pg (27.0-33.0); MEAN CORPUSCULAR HGB CONC 32.3 g/dl (32.0-36.5); MEAN CORPUSCULAR VOLUME 95.7 fl (80.0-96.0); PLATELET COUNT, AUTOMATED 151 10^3/uL (150-450); RED BLOOD COUNT 3.95 10^6/uL (4.00-5.40); WHITE BLOOD COUNT 6.5 10^3/uL (4.0-10.0)
[2022-03-03] MEDS: HEPARIN SOD (PORCINE) 5000UNITS/ML 1ML VIAL/SYRINGE SC SCH ×2 (06:05→13:46)
[2022-03-03] MEDS: LEVOTHYROXINE 125MCG TABLET (0.125MG) PO SCH (06:05)
[2022-03-03 06:41] LABS: ALBUMIN 3.8 G/DL (3.2-5.2); ALKALINE PHOSPHATASE 94 U/L (46-116); ALT/SGPT 19 U/L (7.0-40); AST/SGOT 26 U/L (<34); BILIRUBIN,TOTAL 0.4 MG/DL (0.3-1.2); BLOOD UREA NITROGEN 13 MG/DL (9-23); CALCIUM LEVEL 9.8 MG/DL (8.3-10.6); CARBON DIOXIDE LEVEL 25 MMOL/L (20-31); CHLORIDE LEVEL 106 MMOL/L (98-107); CREATININE FOR GFR 0.93 MG/DL (0.55-1.30); GLOMERULAR FILTRATION RATE > 60.0 (>39); GLUCOSE, FASTING 106 MG/DL (74-106); POTASSIUM SERUM 4.1 MMOL/L (3.5-5.1); SODIUM LEVEL 143 MMOL/L (136-145); TOTAL PROTEIN 6.3 G/DL (5.7-8.2)
[2022-03-03] MEDS: ADVAIR HFA 230/21MCG INHALER INH SCH (07:45)
[2022-03-03 08:00] VITALS: BP 134/84
[2022-03-03] MEDS: **hydrALAZINE** 50 MG TAB PO SCH (09:19)
[2022-03-03] MEDS: levETIRAcetam 250MG TABLET (KEPPRA) PO SCH (09:19)
[2022-03-03] MEDS: GABAPENTIN 400MG CAP PO SCH ×2 (09:19→15:06)
[2022-03-03] MEDS: FUROSEMIDE 40 MG TAB PO SCH (09:19)
[2022-03-03] MEDS: PRIMIDONE 50MG TAB PO SCH (09:19)
[2022-03-03] MEDS: VERAPAMIL 180MG EXTENDED RELEASE TABLET PO SCH (09:19)
[2022-03-03] MEDS: PREGABALIN 75 MG CAP(LYRICA) PO SCH (09:19)
[2022-03-03] MEDS ORDERED: MYSO50TA5 PO (14:38)
[2022-03-03] MEDS ORDERED: PRED10TA2 PO (14:38)
[2022-03-03] MEDS ORDERED: COZA50TA PO (14:38)
[2022-03-03] MEDS ORDERED: GABA-283 PO (14:38)
[2022-03-03] MEDS ORDERED: LYRI75CA PO ×2 (14:38→14:44)
[2022-03-03] MEDS: SOLIFENACIN 5 MG TAB PO SCH (15:06)
[2022-03-05 06:08] LABS: VITAMIN B1 LEVEL WHOLE BLOOD 107.5 nmol/L (66.5-200.0)
== END 2022-03-03 17:10 | disposition home health service (06) | DRG 59 ==
LOC: M ED 14:42 → EDBD 14:42 → M ED INP 20:07 → M PCU 23:42
PROVIDERS: ADMIT Internal Medicine; ATTEND Internal Medicine
DX: G11.8 Other hereditary ataxias (principal); N17.9 Acute kidney failure, unspecified; I12.9 Hypertensive chronic kidney disease with stage 1 through stage 4 chronic kidney disease, or unspecified chronic kidney disease; G40.909 Epilepsy, unspecified, not intractable, without status epilepticus; E03.9 Hypothyroidism, unspecified; N18.30 Chronic kidney disease, stage 3 unspecified; G50.0 Trigeminal neuralgia; M79.7 Fibromyalgia; E87.6 Hypokalemia; T43.8X5A Adverse effect of other psychotropic drugs, initial encounter; T42.6X5A Adverse effect of other antiepileptic and sedative-hypnotic drugs, initial encounter; R29.6 Repeated falls; J45.909 Unspecified asthma, uncomplicated; Z79.890 Hormone replacement therapy; Z79.899 Other long term (current) drug therapy; Z88.0 Allergy status to penicillin; Z88.6 Allergy status to analgesic agent; Z88.5 Allergy status to narcotic agent; Z88.8 Allergy status to other drugs, medicaments and biological substances; Z91.048 Other nonmedicinal substance allergy status; Z96.653 Presence of artificial knee joint, bilateral; Z96.611 Presence of right artificial shoulder joint; Z90.49 Acquired absence of other specified parts of digestive tract

== ENCOUNTER → 2022-08-06 | Outpatient (CLI) | payer MEDICARE, OTHER ==
[~2022-08-06] MED LIST changes: +FURO40TA2 PO; +LEVE500T5 PO; +LOSA-528 PO; -LOSA100T45 PO; +LOSA100T46 PO; +MONT-5 PO; +ONDA8TAB8 PO; -SING10TA32 PO; +med rec comment
[2022-08-06 10:32] LABS: ABG BASE EXCESS 3.5 (-2.0-2.0); ABG HCO3 26.7 MMOL/L (22.0-26.0); ABG O2 SATURATION 93.5 % (95.0-99.0); ABG PARTIAL PRESSURE CO2 35.6 mmHg (35.0-45.0); ABG STANDARD HCO3 27.5 MMOL/L. (22.0-26.0); ABG TOTAL CO2 27.8 MMOL/L (23.0-31.0); ABG pH (ARTERIAL) 7.493 UNITS (7.350-7.450)
== END ==
LOC: M RADPRO 09:55
PROVIDERS: ATTEND Internal Medicine Pulmonary Disease
DX: R94.2 Abnormal results of pulmonary function studies (principal)

== ENCOUNTER → 2022-08-13 | Outpatient (CLI) | payer MEDICARE, OTHER ==
[~2022-08-13] MED LIST changes: +ISOVUE-300 61% 100ML VIAL ONE; +LIDOCAINE 1% MDV 20ML VIAL ONE; +methylPREDNISolone SUSP 40MG/ML 1ML VIAL (DEPO MEDROL) ONE
== END ==
LOC: M PLAIMG 14:17
PROVIDERS: ATTEND Physician Assistant Surgical
DX: M16.12 Unilateral primary osteoarthritis, left hip (principal)
CPT/HCPCS: 20610; 77002; J1030; Q9967

== ENCOUNTER → 2022-08-26 | Outpatient (REF) | payer MEDICARE, OTHER ==
[~2022-08-26] MED LIST changes: -ISOVUE-300 61% 100ML VIAL ONE; -LIDOCAINE 1% MDV 20ML VIAL ONE; -MAXA10TA15 PO; +RIZA10TA66 PO; -methylPREDNISolone SUSP 40MG/ML 1ML VIAL (DEPO MEDROL) ONE
[2022-08-26 17:08] LABS: INR 0.87
[2022-08-26 17:09] LABS: PARTIAL THROMBOPLASTIN TIME 27.7 SECONDS (24.8-34.2)
== END ==
LOC: M LAB REF 16:40
PROVIDERS: ATTEND Physician Assistant Medical
DX: Z01.818 Encounter for other preprocedural examination (principal)

== ENCOUNTER 2022-11-15 14:43 | Emergency (ER) | payer MEDICARE, OTHER ==
[~2022-11-15] VITALS: Ht 154.9 cm; Wt 81.4 kg
[~2022-11-15 14:43] MED LIST changes: -GABA-283 PO; +GABA-284 PO; +MECL-209 PO; -MECL1TAB31 PO
[2022-11-15 14:54] VITALS: TEMP 97.5
[2022-11-15] MEDS ORDERED: BOOSTRIX VACCINE (TETANUS/DIPHTH/ACEL. PERTUSSIS) 0.5ML SYR IM.IMMUN ONE (15:25)
[2022-11-15 16:04] VITALS: BP 141/78; O2SAT 93
== END 2022-11-15 15:55 | disposition home or self-care (01) ==
LOC: EDBD 14:43 → M ED 14:43
DX: S01.81XA Laceration without foreign body of other part of head, initial encounter (principal); Y92.009 Unspecified place in unspecified non-institutional (private) residence as the place of occurrence of the external cause; I10 Essential (primary) hypertension; Z79.899 Other long term (current) drug therapy; Z88.0 Allergy status to penicillin; Z88.5 Allergy status to narcotic agent; Z88.8 Allergy status to other drugs, medicaments and biological substances; Z91.89 Other specified personal risk factors, not elsewhere classified

== ENCOUNTER → 2022-12-22 | Outpatient (REF) | payer MEDICARE, OTHER ==
[2022-12-22 17:21] LABS: PERCENT SATURATION 20.8 % (13.2-45.0)
[2022-12-22 17:23] LABS: FERRITIN 22.9 NG/ML (7.3-270.7)
== END ==
LOC: M LAB REF 16:20
PROVIDERS: ATTEND Internal Medicine
DX: D64.9 Anemia, unspecified (principal); I50.33 Acute on chronic diastolic (congestive) heart failure; I13.0 Hypertensive heart and chronic kidney disease with heart failure and stage 1 through stage 4 chronic kidney disease, or unspecified chronic kidney disease

== ENCOUNTER → 2023-02-27 | Outpatient (CLI) | payer MEDICARE, OTHER ==
[~2023-02-27] MED LIST changes: +BIOT5CAP8 PO
== END ==
LOC: M CARPUL 10:24
PROVIDERS: ATTEND Internal Medicine Pulmonary Disease
DX: I50.9 Heart failure, unspecified (principal)

== ENCOUNTER 2023-03-09 13:15 | Outpatient (RCR) | payer MEDICARE, OTHER | END 2023-03-11 | LOC: M ST 13:15 | PROVIDERS: ATTEND Otolaryngology | DX: R49.0 Dysphonia (principal) ==

== ENCOUNTER → 2023-03-16 | Outpatient (CLI) | payer MEDICARE, OTHER | LOC: M RAD 11:26 | PROVIDERS: ATTEND Internal Medicine Pulmonary Disease | DX: R94.2 Abnormal results of pulmonary function studies (principal) ==

== ENCOUNTER → 2023-04-02 | Outpatient (REF) | payer MEDICARE, OTHER ==
[~2023-04-02] MED LIST changes: -HYDR25TA PO; +HYDR25TA88 PO
[2023-04-02 14:59] LABS: URIC ACID 7.4 MG/DL (3.1-7.8)
[2023-04-02 15:01] LABS: RHEUMATOID FACTOR QUANT < 3.5 IU/ML (<14)
== END ==
LOC: M LAB REF 12:41
PROVIDERS: ATTEND Internal Medicine
DX: M13.0 Polyarthritis, unspecified (principal)

== ENCOUNTER 2023-04-06 13:09 | Outpatient (RCR) | payer MEDICARE, OTHER ==
[2023-04-10] MEDS ORDERED: LEVO100T5 PO (17:12)
[2023-04-10] MEDS ORDERED: GABA-284 PO ×2 (17:12→20:18)
[2023-04-10] MEDS ORDERED: LOSA50TA28 PO (17:12)
[2023-04-10] MEDS ORDERED: ELIQ5TAB PO (17:18)
[2023-04-10] MEDS ORDERED: SPIR-10 PO (17:18)
[2023-04-10] MEDS ORDERED: PROP10TA56 PO (17:18)
[2023-04-10] MEDS ORDERED: ARNU1INH3 INH (17:18)
[2023-04-10] MEDS ORDERED: OMEP-173 PO (17:18)
[2023-04-10] MEDS ORDERED: ZOLP5TAB PO (17:18)
[2023-04-10] MEDS ORDERED: ROSU5TAB5 PO (17:31)
[2023-04-10] MEDS ORDERED: HYDR25TA87 PO (18:46)
== END 2023-04-09 ==
LOC: M ST 13:09
PROVIDERS: ATTEND Otolaryngology
DX: R49.0 Dysphonia (principal); J37.0 Chronic laryngitis

== ENCOUNTER 2023-04-10 10:08 | Observation (INO) | payer MEDICARE, OTHER ==
[~2023-04-10] VITALS: Ht 152.4 cm; Wt 83.2 kg
[2023-04-10 11:51] LABS: BASO % 0.2 % (0.0-1.0); HEMATOCRIT 39.6 % (36.0-47.0); HEMOGLOBIN 13.8 g/dl (12.0-15.5); LYMPH # 0.7 10^3/uL (1.5-5.0); LYMPH % 4.9 % (24.0-44.0); MEAN CORPUSCULAR HEMOGLOBIN 31.1 pg (27.0-33.0); MEAN CORPUSCULAR HGB CONC 34.8 g/dl (32.0-36.5); MEAN CORPUSCULAR VOLUME 89.2 fl (80.0-96.0); MONO # 0.6 10^3/uL (0.0-0.8); MONO % 4.8 % (2.0-8.0); NEUTROPHILS # 11.8 10^3/uL (1.5-8.5); NEUTROPHILS % 89.6 % (36.0-66.0); PLATELET COUNT, AUTOMATED 254 10^3/uL (150-450); RED BLOOD COUNT 4.44 10^6/uL (4.00-5.40); WHITE BLOOD COUNT 13.2 10^3/uL (4.0-10.0)
[2023-04-10 12:10] LABS: VENOUS BASE EXCESS 1.6 (-2.0-2.0); VENOUS HCO3 26.8 MMOL/L (23.0-27.0); VENOUS O2 SATURATION 78.5 % (60.0-80.0); VENOUS PARTIAL PRESSURE O2 41.4 mmHg (30.0-50.0); VENOUS PH 7.402 UNITS (7.330-7.430); VENOUS STANDARD HCO3 25.4 MMOL/L; VENOUS TOTAL CO2 28.1 MMOL/L (24.0-28.0)
[2023-04-10 12:16] LABS: ALBUMIN 4.2 G/DL (3.2-5.2); BILIRUBIN,DIRECT 0.4 MG/DL (<0.4); BILIRUBIN,TOTAL 1.2 MG/DL (0.3-1.2); CALCIUM LEVEL 9.7 MG/DL (8.3-10.6); CREATININE FOR GFR 1.31 MG/DL (0.55-1.30); GLOMERULAR FILTRATION RATE 42.6 (>39); POTASSIUM SERUM 4.3 MMOL/L (3.5-5.1); TOTAL PROTEIN 7.1 G/DL (5.7-8.2)
[2023-04-10] MEDS: NS 1,000 ML IV ONE (12:20)
[2023-04-10] MEDS ORDERED: IPRATROPIUM 0.5MG/ALBUTEROL 2.5MG INH SOL UD 3ML (DUONEB) NEB SCH (15:00)
[2023-04-10] MEDS: predniSONE 20 MG TAB PO ONE (15:30)
[2023-04-10] MEDS: LevoFLOXacin IV 750 MG in IV 1 EA IV ONE (15:30)
[2023-04-10] MEDS ORDERED: ALBUTEROL SULFATE 2.5MG/0.5ML INH NEB SOLN NEB PRN (16:50)
[2023-04-10] MEDS ORDERED: GABA-284 PO ×2 (17:12→20:18)
[2023-04-10] MEDS ORDERED: LOSA50TA28 PO (17:12)
[2023-04-10] MEDS ORDERED: LEVO100T5 PO (17:12)
[2023-04-10] MEDS ORDERED: ELIQ5TAB PO (17:18)
[2023-04-10] MEDS ORDERED: SPIR-10 PO (17:18)
[2023-04-10] MEDS ORDERED: ARNU1INH3 INH (17:18)
[2023-04-10] MEDS ORDERED: ZOLP5TAB PO (17:18)
[2023-04-10] MEDS ORDERED: OMEP-173 PO (17:18)
[2023-04-10] MEDS ORDERED: PROP10TA56 PO (17:18)
[2023-04-10] MEDS ORDERED: ROSU5TAB5 PO (17:31)
[2023-04-10] MEDS ORDERED: HOME MED LIST COMPLETE! XX SCH ×2 (17:35→20:20)
[2023-04-10] MEDS ORDERED: BACLOFEN 10 MG TAB PO PRN (18:15)
[2023-04-10] MEDS ORDERED: PILL CUTTER 1 EACH XX PRN (18:30)
[2023-04-10] MEDS ORDERED: HYDR25TA87 PO (18:46)
[2023-04-10] MEDS ORDERED: GABAPENTIN 400MG CAP PO SCH (21:00)
[2023-04-10] MEDS: IPRATROPIUM 0.5MG/ALBUTEROL 2.5MG INH SOL UD 3ML (DUONEB) NEB SCH (21:18)
[2023-04-10] MEDS: PREGABALIN 75 MG CAP(LYRICA) PO SCH (21:32)
[2023-04-10] MEDS: APIXABAN 5 MG TAB (ELIQUIS) PO SCH (21:32)
[2023-04-10] MEDS: levETIRAcetam 250MG TABLET (KEPPRA) PO SCH (21:33)
[2023-04-10] MEDS: OMEPRAZOLE 20MG CAP PO SCH (21:33)
[2023-04-10] MEDS: zolPIDEM TARTRATE 5 MG TAB PO SCH (21:33)
[2023-04-10] MEDS: NS 1,000 ML IV SCH (21:34)
[2023-04-10] MEDS: MAG SULF 1GM/100ML (MAG RUN) 1 GM in IV 1 EA IV ONE (21:34)
[2023-04-10] MEDS ORDERED: HEPARIN SOD (PORCINE) 5000UNITS/ML 1ML VIAL/SYRINGE SC SCH (22:00)
[2023-04-10] MEDS: ACETAMINOPHEN TAB 650MG DOSE (2X325MG) PO PRN (22:04)
[2023-04-10 23:56] VITALS: O2SAT 91
[2023-04-11] MEDS: LEVOTHYROXINE 100MCG TABLET (0.1MG) PO SCH (05:47)
[2023-04-11 06:08] VITALS: BP 136/74; TEMP 97.2; O2SAT 92
[2023-04-11 06:12] LABS: BASO % 0.1 % (0.0-1.0); HEMATOCRIT 34.6 % (36.0-47.0); HEMOGLOBIN 11.9 g/dl (12.0-15.5); LYMPH # 0.8 10^3/uL (1.5-5.0); LYMPH % 5.2 % (24.0-44.0); MEAN CORPUSCULAR HEMOGLOBIN 30.7 pg (27.0-33.0); MEAN CORPUSCULAR HGB CONC 34.4 g/dl (32.0-36.5); MEAN CORPUSCULAR VOLUME 89.2 fl (80.0-96.0); MONO # 0.7 10^3/uL (0.0-0.8); NEUTROPHILS # 14.5 10^3/uL (1.5-8.5); NEUTROPHILS % 90.1 % (36.0-66.0); PLATELET COUNT, AUTOMATED 196 10^3/uL (150-450); RED BLOOD COUNT 3.88 10^6/uL (4.00-5.40); WHITE BLOOD COUNT 16.1 10^3/uL (4.0-10.0)
[2023-04-11 06:30] LABS: BLOOD UREA NITROGEN 12 MG/DL (9-23); CALCIUM LEVEL 9.4 MG/DL (8.3-10.6); CARBON DIOXIDE LEVEL 26 MMOL/L (20-31); CHLORIDE LEVEL 102 MMOL/L (98-107); CREATININE FOR GFR 0.88 MG/DL (0.55-1.30); GLOMERULAR FILTRATION RATE > 60.0 (>39); GLUCOSE, FASTING 128 MG/DL (74-106); MAGNESIUM LEVEL 2.3 MG/DL (1.8-2.4); POTASSIUM SERUM 4.5 MMOL/L (3.5-5.1); SODIUM LEVEL 135 MMOL/L (136-145)
[2023-04-11] MEDS: predniSONE 20 MG TAB PO SCH (08:08)
[2023-04-11] MEDS: ROSUVASTATIN 10 MG TAB (CRESTOR) PO SCH (08:09)
[2023-04-11] MEDS ORDERED: IPRATROPIUM 0.5MG/ALBUTEROL 2.5MG INH SOL UD 3ML (DUONEB) NEB PRN (09:10)
[2023-04-11] MEDS: VERAPAMIL 180MG EXTENDED RELEASE TABLET PO SCH (09:11)
[2023-04-11 10:30] VITALS: BP 133/73; TEMP 98.6; O2SAT 90
[2023-04-11 10:40] LABS: CHOLESTEROL RISK RATIO 1.54 (<5); HDL CHOLESTEROL 87.1 MG/DL (>40); LDL CHOLESTEROL 40.3 MG/DL (<100); NON-HDL-C 47.9 MG/DL
[2023-04-11 14:00] VITALS: BP 110/55; TEMP 97.3; O2SAT 95
[2023-04-11] MEDS: GABAPENTIN 400MG CAP PO SCH (20:18)
[2023-04-11 20:31] VITALS: BP 110/54; TEMP 97.7; O2SAT 94
[2023-04-12 06:05] VITALS: BP 160/84; TEMP 97.5; O2SAT 94
[2023-04-12 06:44] LABS: BASO % 0.1 % (0.0-1.0); EOS % 0.1 % (0.0-3.0); HEMATOCRIT 34.6 % (36.0-47.0); HEMOGLOBIN 11.4 g/dl (12.0-15.5); LYMPH # 1.2 10^3/uL (1.5-5.0); LYMPH % 9.1 % (24.0-44.0); MEAN CORPUSCULAR HEMOGLOBIN 30.6 pg (27.0-33.0); MEAN CORPUSCULAR HGB CONC 32.9 g/dl (32.0-36.5); MONO # 0.6 10^3/uL (0.0-0.8); MONO % 4.5 % (2.0-8.0); NEUTROPHILS # 11.1 10^3/uL (1.5-8.5); NEUTROPHILS % 85.6 % (36.0-66.0); PLATELET COUNT, AUTOMATED 186 10^3/uL (150-450); RED BLOOD COUNT 3.72 10^6/uL (4.00-5.40); WHITE BLOOD COUNT 12.9 10^3/uL (4.0-10.0)
[2023-04-12 07:32] LABS: BLOOD UREA NITROGEN 13 MG/DL (9-23); CALCIUM LEVEL 9.3 MG/DL (8.3-10.6); CARBON DIOXIDE LEVEL 21 MMOL/L (20-31); CHLORIDE LEVEL 108 MMOL/L (98-107); CREATININE FOR GFR 0.77 MG/DL (0.55-1.30); GLOMERULAR FILTRATION RATE > 60.0 (>39); GLUCOSE, FASTING 115 MG/DL (74-106); MAGNESIUM LEVEL 2.1 MG/DL (1.8-2.4); POTASSIUM SERUM 4.1 MMOL/L (3.5-5.1); SODIUM LEVEL 138 MMOL/L (136-145)
[2023-04-12 09:05] VITALS: BP 141/71
[2023-04-12 10:47] VITALS: BP 140/75
[2023-04-12] MEDS ORDERED: LEVO1TAB40 PO (11:28)
[2023-04-12] MEDS ORDERED: PRED10TA2 PO (11:28)
[2023-04-12] MEDS ORDERED: LevoFLOXacin IV 750 MG in IV 1 EA IV SCH (13:00)
== END 2023-04-12 13:04 | disposition home or self-care (01) ==
LOC: M ED 10:08 → M ED INP 16:09 → M MSPAV 22:14
PROVIDERS: ADMIT Internal Medicine; ATTEND Internal Medicine
DX: J18.9 Pneumonia, unspecified organism (principal); J45.51 Severe persistent asthma with (acute) exacerbation; I12.9 Hypertensive chronic kidney disease with stage 1 through stage 4 chronic kidney disease, or unspecified chronic kidney disease; E78.5 Hyperlipidemia, unspecified; K21.9 Gastro-esophageal reflux disease without esophagitis; E66.9 Obesity, unspecified; G47.33 Obstructive sleep apnea (adult) (pediatric); E03.9 Hypothyroidism, unspecified; N18.30 Chronic kidney disease, stage 3 unspecified; G50.0 Trigeminal neuralgia; G89.29 Other chronic pain; M13.0 Polyarthritis, unspecified; F41.1 Generalized anxiety disorder; E87.1 Hypo-osmolality and hyponatremia; N17.9 Acute kidney failure, unspecified; M48.00 Spinal stenosis, site unspecified; E86.0 Dehydration; G25.0 Essential tremor; G43.909 Migraine, unspecified, not intractable, without status migrainosus; R07.89 Other chest pain; Z90.49 Acquired absence of other specified parts of digestive tract; Z96.653 Presence of artificial knee joint, bilateral; Z87.891 Personal history of nicotine dependence; Z79.01 Long term (current) use of anticoagulants; Z79.890 Hormone replacement therapy; Z79.899 Other long term (current) drug therapy; Z88.0 Allergy status to penicillin; Z88.5 Allergy status to narcotic agent; Z88.6 Allergy status to analgesic agent; Z88.8 Allergy status to other drugs, medicaments and biological substances; Z91.048 Other nonmedicinal substance allergy status; Z11.52 Encounter for screening for COVID-19; Z86.718 Personal history of other venous thrombosis and embolism; Z86.711 Personal history of pulmonary embolism
CPT/HCPCS: 36415; 70450; 71045; 71046; 71250; 80048; 80061; 80076; 81001; 82803; 83605; 83735; 84484; 85025; 87040; 87086; 87486; 87581; 87633; 87641; 87798; 93005; 93041; 94640; 94760; 96361; 96365; 96366; 96367; 97116; 97161; 99285; G0378; J1956; J3475; J7512

== ENCOUNTER 2023-05-05 12:54 | Outpatient (RCR) | payer MEDICARE, OTHER ==
[~2023-05-05 12:54] MED LIST changes: +ARNU1INH3 INH; +ELIQ5TAB PO; +HYDR25TA87 PO; +LEVO100T5 PO; +LEVO1TAB40 PO; +LOSA50TA28 PO; +OMEP-173 PO; +PROP10TA56 PO; +ROSU5TAB5 PO; +SPIR-10 PO; +ZOLP5TAB PO
== END 2023-05-10 ==
LOC: M ST 12:54
PROVIDERS: ATTEND Otolaryngology
DX: R49.0 Dysphonia (principal)

== ENCOUNTER 2023-06-08 12:48 | Outpatient (RCR) | payer MEDICARE, OTHER | END 2023-06-09 | LOC: M ST 12:48 | PROVIDERS: ATTEND Otolaryngology | DX: J38.3 Other diseases of vocal cords (principal) ==

== ENCOUNTER 2023-06-15 12:30 | Outpatient (RCR) | payer MEDICARE, OTHER ==
[~2023-06-15 12:30] MED LIST changes: +ROSU5TAB40 PO; -ROSU5TAB5 PO
== END 2023-07-10 ==
LOC: M ST 12:30
PROVIDERS: ATTEND Otolaryngology
DX: J38.3 Other diseases of vocal cords (principal)

== ENCOUNTER → 2023-09-29 | Outpatient (CLI) | payer MEDICARE, OTHER ==
[~2023-09-29] MED LIST changes: +ONDA-284 PO; -ONDA8TAB8 PO
== END ==
LOC: M LAB 14:16
PROVIDERS: ATTEND Psychiatry & Neurology Neurology
DX: Z01.89 Encounter for other specified special examinations (principal)

== ENCOUNTER → 2023-10-06 | Outpatient (REF) | payer MEDICARE, OTHER ==
[2023-10-06 19:17] LABS: FERRITIN 37.1 NG/ML (7.3-270.7)
[2023-10-06 19:43] LABS: PERCENT SATURATION 46.4 % (13.2-45.0)
== END ==
LOC: M LAB REF 17:30
PROVIDERS: ATTEND Internal Medicine
DX: D50.9 Iron deficiency anemia, unspecified (principal)

== ENCOUNTER → 2023-10-23 | Outpatient (REF) | payer MEDICARE, OTHER | LOC: M LAB REF 16:31 | PROVIDERS: ATTEND Physician Assistant | DX: B34.9 Viral infection, unspecified (principal) ==

== ENCOUNTER → 2023-11-06 | Outpatient (REF) | payer MEDICARE, OTHER ==
[2023-11-06 12:46] LABS: AMORPHOUS SEDIMENT SMALL (NEGATIVE); APPEARANCE, URINE CLOUDY (CLEAR); BACTERIA, URINE AUTO NEGATIVE (NEGATIVE); BILIRUBIN, URINE AUTO NEGATIVE (NEGATIVE); BLOOD, URINE BLOOD NEGATIVE (NEGATIVE); COLOR, URINE YELLOW (YELLOW); GLUCOSE, URINE (UA) AUTO NEGATIVE (NEGATIVE); KETONE, URINE AUTO TRACE mg/dL (NEGATIVE); LEUKOCYTE ESTERASE, URINE AUTO 2+ (NEGATIVE); MUCUS, URINE SMALL (NEGATIVE); NITRITE, URINE AUTO NEGATIVE (NEGATIVE); PROTEIN, URINE AUTO NEGATIVE (NEGATIVE); RBC, URINE AUTO 1 /HPF (0-3); SPECIFIC GRAVITY URINE AUTO 1.015 (1.002-1.035); SQUAMOUS EPITHELIAL CELL UR AU 11 /HPF (0-6); UROBILINOGEN, URINE AUTO 0.2 mg/dL (0.0-2.0); WBC, URINE AUTO 10 /HPF (0-3)
== END ==
LOC: M LAB REF 12:07
PROVIDERS: ATTEND Physician Assistant
DX: J02.9 Acute pharyngitis, unspecified (principal); N39.0 Urinary tract infection, site not specified

== ENCOUNTER → 2023-11-16 | Outpatient (REF) | payer MEDICARE, OTHER ==
[2023-11-16 17:09] LABS: C REACTIVE PROTEIN QUANTITATIV < 0.40 MG/DL (<1.0)
[2023-11-16 17:10] LABS: IRON (FE) 105 UG/DL (50-170); PERCENT SATURATION 27.1 % (13.2-45.0); TOTAL IRON BINDING CAPACITY 387 UG/DL (250-425)
== END ==
LOC: M LAB REF 16:19
PROVIDERS: ATTEND Physician Assistant Medical
DX: R53.1 Weakness (principal); D50.9 Iron deficiency anemia, unspecified; M13.0 Polyarthritis, unspecified

== ENCOUNTER → 2023-12-18 | Outpatient (CLI) | payer MEDICARE, OTHER ==
[~2023-12-18] MED LIST changes: +LEVA15HF2 INH; -LEVAINH INH; -ROSU5TAB40 PO; +ROSU5TAB49 PO
== END ==
LOC: M RAD 08:47
PROVIDERS: ATTEND Internal Medicine Pulmonary Disease
DX: R91.8 Other nonspecific abnormal finding of lung field (principal); R91.1 Solitary pulmonary nodule

== ENCOUNTER → 2024-01-19 | Outpatient (REF) | payer MEDICARE, OTHER ==
[2024-01-19 17:44] LABS: AMORPHOUS SEDIMENT SMALL (NEGATIVE); APPEARANCE, URINE CLOUDY (CLEAR); BACTERIA, URINE AUTO NEGATIVE (NEGATIVE); BILIRUBIN, URINE AUTO NEGATIVE (NEGATIVE); BLOOD, URINE BLOOD NEGATIVE (NEGATIVE); COLOR, URINE YELLOW (YELLOW); GLUCOSE, URINE (UA) AUTO NEGATIVE (NEGATIVE); KETONE, URINE AUTO NEGATIVE (NEGATIVE); LEUKOCYTE ESTERASE, URINE AUTO NEGATIVE (NEGATIVE); NITRITE, URINE AUTO NEGATIVE (NEGATIVE); PROTEIN, URINE AUTO NEGATIVE (NEGATIVE); RBC, URINE AUTO 1 /HPF (0-3); SPECIFIC GRAVITY URINE AUTO 1.009 (1.002-1.035); SQUAMOUS EPITHELIAL CELL UR AU 1 /HPF (0-6); UROBILINOGEN, URINE AUTO 0.2 mg/dL (0.0-2.0); WBC, URINE AUTO 0 /HPF (0-3)
== END ==
LOC: M LAB REF 16:40
PROVIDERS: ATTEND Physician Assistant
DX: N39.0 Urinary tract infection, site not specified (principal)

== ENCOUNTER → 2024-02-08 | Outpatient (CLI) | payer MEDICARE, OTHER | LOC: M PLALAB 12:46 | PROVIDERS: ATTEND Internal Medicine Pulmonary Disease | DX: J45.50 Severe persistent asthma, uncomplicated (principal) ==

== ENCOUNTER → 2024-04-25 | Outpatient (REF) | payer MEDICARE, OTHER ==
[~2024-04-25] MED LIST changes: -ADV500INH INH; +ADVA1AER10 INH
[2024-04-25 17:20] LABS: APPEARANCE, URINE CLEAR (CLEAR); BACTERIA, URINE AUTO NEGATIVE (NEGATIVE); BILIRUBIN, URINE AUTO NEGATIVE (NEGATIVE); BLOOD, URINE BLOOD NEGATIVE (NEGATIVE); COLOR, URINE YELLOW (YELLOW); GLUCOSE, URINE (UA) AUTO NEGATIVE (NEGATIVE); KETONE, URINE AUTO NEGATIVE (NEGATIVE); LEUKOCYTE ESTERASE, URINE AUTO NEGATIVE (NEGATIVE); NITRITE, URINE AUTO NEGATIVE (NEGATIVE); PROTEIN, URINE AUTO NEGATIVE (NEGATIVE); RBC, URINE AUTO 0 /HPF (0-3); SPECIFIC GRAVITY URINE AUTO 1.008 (1.002-1.035); SQUAMOUS EPITHELIAL CELL UR AU 1 /HPF (0-6); UROBILINOGEN, URINE AUTO 0.2 mg/dL (0.0-2.0); WBC, URINE AUTO 1 /HPF (0-3)
== END ==
LOC: M SMT 16:52
PROVIDERS: ATTEND Specialist
DX: N32.81 Overactive bladder (principal); Z79.899 Other long term (current) drug therapy

== ENCOUNTER → 2024-08-17 | Outpatient (REF) | payer OTHER, MEDICARE ==
[~2024-08-17] MED LIST changes: -AMBI5TAB PO; -PRAV20TA2 PO; +PRAV20TA78 PO; +PRED-1142 OU; -PRED1TABL OU; +PREG-35 PO; -PREG100CA PO; +ZOLP-532 PO
== END ==
LOC: M LAB REF 17:01
PROVIDERS: ATTEND Neuromusculoskeletal Medicine, Sports Medicine
DX: S46.012A Strain of muscle(s) and tendon(s) of the rotator cuff of left shoulder, initial encounter (principal)

== ENCOUNTER → 2024-09-28 | Outpatient (CLI) | payer MEDICARE, OTHER | LOC: M PLAIMG 12:19 | PROVIDERS: ATTEND Internal Medicine Pulmonary Disease | DX: J45.50 Severe persistent asthma, uncomplicated (principal); R06.00 Dyspnea, unspecified; M25.562 Pain in left knee ==

== ENCOUNTER → 2024-09-28 | Outpatient (CLI) | payer OTHER, MEDICARE | LOC: M SOG 06:48 | PROVIDERS: ATTEND Neuromusculoskeletal Medicine, Sports Medicine | DX: M25.562 Pain in left knee (principal) ==

== ENCOUNTER → 2024-10-06 | Outpatient (REF) | payer MEDICARE, OTHER ==
[~2024-10-06] MED LIST changes: -VERA360C PO; +VERA360C6 PO
[2024-10-06 18:31] LABS: IRON (FE) 106.0 UG/DL (50-170); PERCENT SATURATION 29.0 % (13.2-45.0)
== END ==
LOC: M LAB REF 17:18
PROVIDERS: ATTEND Internal Medicine
DX: D50.9 Iron deficiency anemia, unspecified (principal)

== ENCOUNTER → 2024-10-07 | Outpatient (CLI) | payer MEDICARE, OTHER | LOC: M PLALAB 14:09 | PROVIDERS: ATTEND Internal Medicine Pulmonary Disease | DX: J45.50 Severe persistent asthma, uncomplicated (principal) ==

== ENCOUNTER → 2024-10-12 | Outpatient (REF) | payer MEDICARE, OTHER | LOC: M LAB REF 13:13 | PROVIDERS: ATTEND Internal Medicine Pulmonary Disease | DX: J45.50 Severe persistent asthma, uncomplicated (principal); Z11.3 Encounter for screening for infections with a predominantly sexual mode of transmission; Z72.89 Other problems related to lifestyle ==

== ENCOUNTER → 2024-11-03 | Outpatient (CLI) | payer MEDICARE, OTHER ==
[~2024-11-03] MED LIST changes: -ZOLP5TAB PO; +ZOLP5TAB9 PO
== END ==
LOC: M RAD 08:42
PROVIDERS: ATTEND Internal Medicine Nephrology
DX: I70.1 Atherosclerosis of renal artery (principal)

== ENCOUNTER → 2024-11-23 | Outpatient (CLI) | payer MEDICARE, OTHER ==
[~2024-11-23] MED LIST changes: +ISOVUE-370 76% 100 ML VIAL ONE
== END ==
LOC: M PLAIMG 07:32
PROVIDERS: ATTEND Nurse Practitioner Family
DX: I70.1 Atherosclerosis of renal artery (principal)
CPT/HCPCS: 74175; Q9967

== ENCOUNTER → 2024-12-07 | Outpatient (REF) | payer MEDICARE, OTHER ==
[~2024-12-07] MED LIST changes: -ISOVUE-370 76% 100 ML VIAL ONE
[2024-12-07 18:22] LABS: IRON (FE) 141.0 UG/DL (50-170); PERCENT SATURATION 35.1 % (13.2-45.0)
[2024-12-12 12:11] LABS: LYME TOTAL ANTIBODY CIA <= 0.90 Index (<=0.90)
== END ==
LOC: M LAB REF 17:59
PROVIDERS: ATTEND Internal Medicine
DX: R50.9 Fever, unspecified (principal); D50.9 Iron deficiency anemia, unspecified

== ENCOUNTER → 2024-12-14 | Outpatient (CLI) | payer MEDICARE, OTHER | LOC: M RAD 08:05 | PROVIDERS: ATTEND Internal Medicine | DX: M54.2 Cervicalgia (principal); I65.21 Occlusion and stenosis of right carotid artery ==

== ENCOUNTER → 2024-12-21 | Outpatient (POV) | payer MEDICARE, OTHER ==
[~2024-12-21] VITALS: Ht 154.9 cm; Wt 80.9 kg
[~2024-12-21] MED LIST changes: +ARNU1INH PO; +CARB-115 PO; +FLUT1BLS3 IH; +SYNT100T PO; +TEZE210S SQ; +ZOLP-533 PO
[2024-12-21 10:04] VITALS: BP 198/107; O2SAT 98
== END ==
LOC: M IRPOV 09:28
PROVIDERS: ATTEND Radiology Diagnostic Radiology
DX: R51.9 Headache, unspecified (principal); H93.19 Tinnitus, unspecified ear; I15.9 Secondary hypertension, unspecified; H53.2 Diplopia; Z86.711 Personal history of pulmonary embolism; Z86.718 Personal history of other venous thrombosis and embolism; Z79.01 Long term (current) use of anticoagulants; Z88.0 Allergy status to penicillin; Z88.5 Allergy status to narcotic agent; Z88.6 Allergy status to analgesic agent; Z88.8 Allergy status to other drugs, medicaments and biological substances; Z79.51 Long term (current) use of inhaled steroids; Z79.2 Long term (current) use of antibiotics; Z79.899 Other long term (current) drug therapy

== ENCOUNTER 2025-01-08 11:15 | Emergency (ER) | payer MEDICARE, OTHER ==
[~2025-01-08] VITALS: Ht 157.5 cm; Wt 80.6 kg
[2025-01-08 11:20] VITALS: TEMP 98.7
[2025-01-08] MEDS: ACETAMINOPHEN 500 MG TAB PO ONE (12:19)
[2025-01-08 15:15] VITALS: BP 168/85; O2SAT 97
[2025-01-08] MEDS: CYCLOBENZAPRINE 5 MG TABLET PO ONE (15:18)
[2025-01-08] MEDS ORDERED: CYCL5TAB4 PO (15:26)
== END 2025-01-08 15:39 | disposition home or self-care (01) ==
LOC: M ED 11:15
DX: S00.03XA Contusion of scalp, initial encounter (principal); S40.012A Contusion of left shoulder, initial encounter; S70.02XA Contusion of left hip, initial encounter; S70.01XA Contusion of right hip, initial encounter; Y92.019 Unspecified place in single-family (private) house as the place of occurrence of the external cause; Y93.9 Activity, unspecified; Y99.9 Unspecified external cause status; W01.0XXA Fall on same level from slipping, tripping and stumbling without subsequent striking against object, initial encounter; I10 Essential (primary) hypertension; J45.909 Unspecified asthma, uncomplicated; G47.33 Obstructive sleep apnea (adult) (pediatric); E78.5 Hyperlipidemia, unspecified; E03.9 Hypothyroidism, unspecified; Z86.711 Personal history of pulmonary embolism; Z88.0 Allergy status to penicillin; Z88.5 Allergy status to narcotic agent; Z88.6 Allergy status to analgesic agent; Z88.8 Allergy status to other drugs, medicaments and biological substances; Z79.01 Long term (current) use of anticoagulants; Z79.2 Long term (current) use of antibiotics; Z79.51 Long term (current) use of inhaled steroids; Z79.899 Other long term (current) drug therapy

== ENCOUNTER → 2025-01-17 | Outpatient (CLI) | payer MEDICARE, OTHER ==
[~2025-01-17] MED LIST changes: +CYCL5TAB4 PO
[2025-01-17 14:53] LABS: PLATELET COUNT, AUTOMATED 218 10^3/uL (150-450)
[2025-01-17 15:16] LABS: INR 1.08
[2025-01-17 15:23] LABS: ALT/SGPT 30.0 U/L (7.0-40); AST/SGOT 27.0 U/L (<34); CALCIUM LEVEL 9.3 MG/DL (8.3-10.6); CARBON DIOXIDE LEVEL 25.0 MMOL/L (20-31); CHLORIDE LEVEL 101.0 MMOL/L (98-107); CREATININE FOR GFR 0.95 MG/DL (0.55-1.30); GLOMERULAR FILTRATION RATE 63.3 (>39); POTASSIUM SERUM 4.5 MMOL/L (3.5-5.1); SODIUM LEVEL 135.0 MMOL/L (136-145)
== END ==
LOC: M LAB 14:03
PROVIDERS: ATTEND Radiology Diagnostic Radiology
DX: I70.1 Atherosclerosis of renal artery (principal); I10 Essential (primary) hypertension

== ENCOUNTER → 2025-01-20 | Outpatient (CLI) | payer MEDICARE, OTHER ==
[~2025-01-20] MED LIST changes: +ACETAMINOPHEN 325 MG TAB PO PRN; +NS (Normal Saline) 0.9% 1,000 ML IV SCH; +ONDANSETRON 4MG/2ML VIAL IV PRN; +PERCOCET 5MG/325MG TAB PO PRN
[2025-01-20 09:50] VITALS: TEMP 99.1
[2025-01-20] MEDS: NS (Normal Saline) 0.9% 1,000 ML IV SCH (10:54)
[2025-01-20] MEDS: MIDAZOLAM INJ 2 MG/2 ML VIAL IV PRN (10:55)
[2025-01-20] MEDS: ONDANSETRON 4MG/2ML VIAL IV STA (10:55)
[2025-01-20] MEDS: HEPARIN 1,000 UNITS/ML 10 ML VIAL (FOR RADIOLOGY & DIALYSIS ONLY) IV PRN (11:16)
[2025-01-20] MEDS: ISOVUE-300 61% 100 ML VIAL IV SCH (12:11)
[2025-01-20] MEDS: LIDOCAINE 1% MDV 20 ML VIAL SC SCH (12:12)
[2025-01-20] MEDS: traMADol 50 MG TAB PO ONE (13:56)
[2025-01-20 14:21] VITALS: BP 199/88
[2025-01-20 16:30] VITALS: BP 154/70; O2SAT 94
== END ==
LOC: M IRPRO 09:08
PROVIDERS: ATTEND Registered Nurse School
DX: I70.1 Atherosclerosis of renal artery (principal)
CPT/HCPCS: 36252; 37246; 37247; 99152; 99153; C1725; C1769; C1887; J2250; J2405; J3010; Q9967

== ENCOUNTER → 2025-01-30 | Outpatient (POV) | payer MEDICARE, OTHER ==
[~2025-01-30] MED LIST changes: -ACETAMINOPHEN 325 MG TAB PO PRN; -NS (Normal Saline) 0.9% 1,000 ML IV SCH; -ONDANSETRON 4MG/2ML VIAL IV PRN; -PERCOCET 5MG/325MG TAB PO PRN
== END ==
LOC: M IRPOV 10:15
PROVIDERS: ATTEND Registered Nurse School
DX: Z48.812 Encounter for surgical aftercare following surgery on the circulatory system (principal); I70.1 Atherosclerosis of renal artery; Z79.01 Long term (current) use of anticoagulants; Z79.899 Other long term (current) drug therapy; Z88.0 Allergy status to penicillin; Z88.6 Allergy status to analgesic agent; Z88.7 Allergy status to serum and vaccine; Z88.8 Allergy status to other drugs, medicaments and biological substances; Z91.030 Bee allergy status; Z82.5 Family history of asthma and other chronic lower respiratory diseases; Z80.3 Family history of malignant neoplasm of breast; Z82.61 Family history of arthritis; Z83.6 Family history of other diseases of the respiratory system; Z96.653 Presence of artificial knee joint, bilateral; Z90.49 Acquired absence of other specified parts of digestive tract